=== PATIENT | male | born 1935 | race Caucasian/White ===

== ENCOUNTER 2017-11-23 08:29 | Inpatient (IN) | payer MEDICARE, BC ==
--- NOTE | 2017-11-16 08:52 | HP ---
DATE OF ADMISSION/SURGERY: 11/23/17 DATE OF OFFICE VISIT: 11/12/17 ATTENDING SURGEON: Sanam Hensley MD * (DICTATED BY MORELIA SNOWDEN) PROCEDURE: Left total knee arthroplasty. CHIEF COMPLAINT: Left knee pain. HISTORY OF PRESENT ILLNESS: Mr. Plasencia is an 82-year-old gentleman with complaints of left knee pain secondary to end-stage osteoarthritis. He's failed conservative management and elected to proceed with a left total knee arthroplasty which is scheduled for 11/23/[address] Hensley. PAST MEDICAL HISTORY: 1. Hypertension. 2. Atrial fibrillation. 3. High cholesterol. 4. Diabetes. 5. Benign prostatic hypertrophy. PAST SURGICAL HISTORY: 1. Bilateral knee arthroscopies. 2. Unknown prostate surgery. 3. A cyst removed from his jaw. CURRENT MEDICATIONS: 1. Coumadin 2 mg. 2. Glipizide 10 mg twice daily. 3. Metformin 500 mg twice daily. 4. Lantus. 5. Lisinopril 2.5 mg every day. 6. Atorvastatin. 7. Calcium 10 mg every day. 8. Metoprolol 50 mg daily. ALLERGIES: None. FAMILY HISTORY: Diabetes. SOCIAL HISTORY: An 82-year-old gentleman who lives with his . He does not smoke or use drugs. He uses alcohol rarely. REVIEW OF SYSTEMS: A complete 14-point review of systems was reviewed. The patient is positive for diabetes and some occasional dizziness. He denies a history of DVT, PE, hepatitis C, HIV or anesthesia problems. PHYSICAL EXAMINATION GENERAL: He is well developed, well nourished, in no acute distress. VITAL SIGNS: Patient stands 6 feet tall, weighs 240 pounds. His blood pressure was 110/60, heart rate was 80. HEENT: Normocephalic, atraumatic. NECK: Supple with no palpable lymph nodes. PULMONARY: Lungs are clear to auscultation bilaterally. CARDIO: Regular rate and rhythm. Strong S1 and S2. ABDOMEN: Soft, nontender, and nondistended. NEUROLOGIC: He is alert and oriented x3. Cranial nerves II through XII are intact. MUSCULOSKELETAL: Left lower extremity - skin is intact. There are no open wounds or abrasions. He has some tenderness over the medial and lateral joint line. 10- 120 degrees of flexion with patellofemoral crepitus. No varus or valgus instability. 2+ dorsalis pedis pulses. His lower extremity muscular group strengths are intact at 5/5. He has intact sensation. ASSESSMENT AND PLAN: Mr. Monzon is an 82-year-old gentleman with complaints of left knee pain secondary to end-stage osteoarthritis. He has failed conservative management and elected to proceed with a left total knee arthroplasty which is scheduled for 11/23/[address] Hensley discussed the risks and benefits of the surgery at today's visit, and all of his questions were answered. He was instructed to stop his Coumadin one week prior to the surgery. He will follow up with Dr. Hensley two weeks after the surgery. MORELIA SNOWDEN [id number]/CPS #: [id number] MTDD
[~2017-11-23 08:29] MED LIST: Acetaminophen IV 1GM/100ML * 1,000 MG/100 ML VIAL IVPB ONE; Buffered Lidocaine 0.9% SYRIN* 5 ML/SYR SYRINGE INTRADERM ONE; Dexamethasone IV* 4 MG/ML 1 ML (4 MG) IV SLOW PU ONE; Famotidine IV* 10 MG/ML 2 ML (20 mg) IV ONE; Gabapentin CAP(*) 300 MG PO ONE
[2017-11-23] MEDS ORDERED: Buffered Lidocaine 0.9% SYRIN* 5 ML/SYR SYRINGE ONE (08:37)
[2017-11-23] MEDS ORDERED: Dexamethasone IV* 4 MG/ML 1 ML (4 MG) ONE (08:37)
[2017-11-23] MEDS ORDERED: Famotidine IV* 10 MG/ML 2 ML (20 mg) ONE (08:37)
[2017-11-23] MEDS ORDERED: Gabapentin CAP(*) 300 MG ONE (08:37)
[2017-11-23] MEDS ORDERED: ceFAZolin 1 GM in Dextrose (*) 2 GM/100 ML BAG IVPB ONE (08:38)
[2017-11-23] MEDS ORDERED: Acetaminophen IV 1GM/100ML * 100 ML ONE (08:43)
[2017-11-23] MEDS ORDERED: fentaNYL* 50 MCG/ML 2 ML VIAL (100 MCG VIAL) ONE (09:30)
[2017-11-23] MEDS ORDERED: KETAMINE HCL* 50 MG/ML 10 ML VIAL ONE (09:31)
[2017-11-23] MEDS ORDERED: Bupivacaine 0.5% SDV PF* 10-30ML VIAL ONE ×2 (09:31→12:17)
[2017-11-23] MEDS ORDERED: Midazolam* 1 MG/ML 10 ML VIAL (10 MG) ONE (09:31)
[2017-11-23] MEDS ORDERED: Propofol* 10 MG/ML 20 ML BTL IV PUSH ONE (09:31)
[2017-11-23] MEDS ORDERED: Ketorolac INJ* 30 MG/ML 1 ML VIAL ONE (09:31)
[2017-11-23] MEDS ORDERED: Ondansetron INJ* 2 MG/ML VIAL ONE (09:31)
--- OUTSIDE RECORDS SUMMARY | 2017-11-23 09:31 | XMS REPORT ---
:1935 External Reference #:[id number] [facility] [employer] Address [address] [address] Phone [phone] Care Team Providers Name Role Phone Tanvi Latham MD Primary Care Physician Unavailable Payers Type Date Identification Numbers Payment Provider Subscriber Medicare Primary Effective: Policy Number: Medicare Michele Monzon 2000 [id number] PayID: [id number] [address] [place] [address] Medigap Part B Policy Number: [id number] BS Facets Michele Monzon PayID: [id number] [address] [address] [place] [address] Medigap Part B Effective: 1998 Policy Number: BS Of [facility] Michele Monzon [id number] Expires: 2017 Group Number: [id number] [address] [address] Group Name: [id number] [place] [id number] PayID: [id number] Problems Date Description Provider Status Onset: 10/15/2017 Localized, primary osteoarthritis Sanam Hensley M.D. Active Family History Date Family Member(s) Problem(s) Comments General Diabetes : (age 76 Father due to CAD Years) : (age 94 Mother due to Vascular Years) Disease Onset: (10/26/2017) Siblings 6 Siblings 6 1 dec - brain tumor : (age 76 First Brother due to Brain Years) Tumor Social History Type Date Description Comments Marital Status Lives With Spouse Occupation Retired ETOH Use Occasionally consumes beer Smoking Patient is a former smoker Recreational Drug Use Denies Drug Use Smoking Patient is a former smoker quit 1957 Presently, pt chews Daily Caffeine Consumes on average 1 cup of regular coffee per day Exercise Type/Frequency Does not exercise Allergies, Adverse Reactions, Alerts Date Description Reaction Status Severity Comments 12/09/2005 NKDA active Medications Medication Date Status Form Strength Qnty SIG Indications Ordering Provider Metformin HCL Active Tablets 1000mg take one Cuate Santiago tablet by keven Velez M.DConor twice a day Coumadin Active Tablets 2mg 100tab as Cuate Martinez (managed M.D. by Dr. Latham) Glipizide Active Tablets 10mg bid Cuate Martinez M.D. Lantus Active 20 units Unknown 000 SQ bid Lisinopril Active Tablets 2.5mg 1 by mouth Unknown 000 every day Atorvastatin Active Tablets 10mg 1 by mouth Unknown Calcium 000 every day Metoprolol Active Tablets 50mg 1 by mouth Unknown Succinate ER 000 ER 24HR every day Atenolol Hx Tablets 25mg 30tabs 1 PO qd Cuate Martinez, M.DConor 018 Metformin Hx Tablets 500mg 60tabs 1 PO bid Cuate Martinez, M.DConor 018 Lipitor Hx Tablets 10mg 30tabs 1 PO qd Cuate Martinez, BrandonDConor 018 Vital Signs Date Vital Result Comment 10/26/2017 Height 71 inches 5'11" Weight 249.12 lb with shoes Heart Rate 80 /min BP Systolic Sitting 124 mmHg LA, l cuff BP Diastolic Sitting 66 mmHg LA, l cuff BMI (Body Mass Index) 34.7 kg/m2 Ejection Fraction 66% echo 12/16/05 10/15/2017 Height 71 inches 5'11" Weight 240.00 lb Heart Rate 80 /min BP Systolic 110 mmHg BP Diastolic 60 mmHg BMI (Body Mass Index) 33.5 kg/m2 12/09/2005 Height 71 inches 5'11" Weight 246.00 lb Heart Rate 70 /min BP Systolic Sitting 132 mmHg left arm, right arm 138/86 BP Diastolic Sitting 84 mmHg left arm, right arm 138/86 BP Systolic Standing 128 mmHg BP Diastolic Standing 80 mmHg BMI (Body Mass Index) 34.3 kg/m2 Results Description No Information Procedures Date CPT Code Description Status 10/26/2017 37499 EKG Tracing & Interpretation Completed 12/16/2005 07954 Color Doppler Completed 12/16/2005 62747 Pulse Doppler & Continuous Wave Completed 12/16/2005 84807 Echocardiogram Completed 12/15/2005 21192 Treadmill Interp/Report Only Completed 12/15/2005 69930 Stress Test Supervsn W/Out I/R Completed 12/09/2005 53421 EKG Tracing & Interpretation Completed 12/19/2002 65624 ECHO/Stress Completed 12/19/2002 71358 Treadmill Interp/Report Only Completed 12/19/2002 78486 Stress Test Supervsn W/Out I/R Completed 12/14/2002 00756 Color Doppler Completed 12/14/2002 32852 Pulse Doppler & Continuous Wave Completed 12/14/2002 08460 Echocardiogram Completed Encounters Type Date Location Provider CPT E/M Dx Office Visit 12/09/2005 10:40a [facility] Cuate Martinez, [address] 794.31 Shonda 427.31 Plan of Care Future Appointment(s):11/19/2017 1:20 pm - Cuate Martinez M.D. at [facility]11/16/2017 8:30 am - Nurse Visit cc at [facility]11/15/2017 10 :00 am - Nurse Visit cc at [facility]11/12/2017 3:45 pm - [facility] Schedule at [facility]11/18/2017 8:45 am - Cuate Martinez M.D. at [facility]11/23/2017 12:00 pm - Sanam Hensley M.D. at [facility]12/06/2017 1:00 pm - Sanam Hensley M.D. at [facility]11/12/2017 10:45 am - Sanam Hensley M.D. at [facility]10/26/2017 - Cuate Martinez M.D.M17.0 Bilateral primary osteoarthritis of kneeZ01.810 Encounter for preprocedural cardiovascular ooiyupyswmdZ54.2 Difficulty in walking, not elsewhere uyqmgdexbtU57.31 Abnormal electrocardiogram [ECG] [EKG]New Orders: EchocardiogramLexiscan Nuclear MyoviewFollow up:pt is preop for 2.13.18I10 Essential (primary) gkklsvriroddQ66.00 Pure hypercholesterolemia, wlnmcdihyepL04.0 Paroxysmal atrial fibrillationNew Orders:Holter Monitor
--- OUTSIDE RECORDS SUMMARY | 2017-11-23 09:31 | XMS REPORT ---
:1935 External Reference #:[id number] Author Organization [facility] [employer] Address [address] [address] Phone [phone] Care Team Providers Name Role Phone Tanvi Latham MD Primary Care Physician Unavailable Payers Type Date Identification Numbers Payment Provider Subscriber Medicare Primary Effective: Policy Number: Medicare Michele Monzon 2000 [id number] PayID: [id number] [address] [place] [address] Medigap Part B Policy Number: [id number] BS Facets Michele Monzon PayID: [id number] [address] [address] [place] [address] Medigap Part B Effective: 1998 Policy Number: BS Of [facility] Michele Monzon [id number] Expires: 2017 Group Number: [id number] [address] [address] Group Name: [id number] [place] [address] PayID: [id number] Problems Date Description Provider Status Onset: 10/15/2017 [...] History Type Date Description Comments Marital Status Stephani Monzon. 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 ETOH Use Occasionally consumes beer Smoking Patient [...] 1000mg take one Cuate Santiago tablet by Monica Martinez mouth M.DConor twice a day Coumadin Active Tablets [...] 10mg 30tabs 1 PO qd Cuate Martinez, Librado.DConor 018 Vital Signs Date Vital Result Comment 11/12/2017 Height 71 inches 5'11" Weight 250.00 lb Heart Rate 80 /min BP Systolic 126 mmHg BP Diastolic 64 mmHg BMI (Body Mass Index) 34.9 kg/m2 10/26/2017 Height 71 inches 5'11" Weight 249.12 [...] Procedures Date CPT Code Description Status 10/26/2017 93341 EKG Tracing & Interpretation Completed 12/16/2005 46143 Color Doppler Completed 12/16/2005 04558 Pulse Doppler & Continuous Wave Completed 12/16/2005 81291 Echocardiogram Completed 12/15/2005 75645 Treadmill Interp/Report Only Completed 12/15/2005 89885 Stress Test Supervsn W/Out I/R Completed 12/09/2005 95711 EKG Tracing & Interpretation Completed 12/19/2002 96720 ECHO/Stress Completed 12/19/2002 42023 Treadmill Interp/Report Only Completed 12/19/2002 78245 Stress Test Supervsn W/Out I/R Completed 12/14/2002 72714 Color Doppler Completed 12/14/2002 65682 Pulse Doppler & Continuous Wave Completed 12/14/2002 07370 Echocardiogram Completed Encounters Type Date Location Provider CPT E/M Dx Office Visit 10/26/2017 9:40a [facility] Cuate Martinez, [address] M17.0 Librado.Job Z01.810 R26.2 R94.31 I10 E78.00 I48.0 R53.83 I44.0 I45.0 Office Visit 10/15/2017 2:00p [facility] Sanam Hensley M.D. 99086 M25.461 C.M.AConor M25.462 M25.562 M25.561 M17.0 Office Visit 12/09/2005 10:40a [facility] Cuate Martinez, [address] 794.31 MKaia 427.31 Plan of Care Future Appointment(s):11/23/2017 11:30 am - MORELIA Garces at [facility]11/23/2017 11:30 am - Carl Sanchez PA-C at [facility]11/23/2017 11:30 am - MORELIA Arce at [facility]11/18/2017 10:30 am - Cuate Martinez M.D. at [facility]11/16/2017 8:30 am - Nurse Visit cc at [facility]11/15/2017 10 :00 am - Nurse Visit cc at [facility]11/23/2017 11:30 am - Sanam Hensley M.D. at [facility]12/06/2017 1:00 pm - Sanam Hensley M.D. at [facility]11/12/2017 - Sanam Hensley M.D.M17.0 Bilateral primary osteoarthritis of kneeFollow up:Follow up: 2 weeks after uyqrnusK42.562 Pain in left kneeM25.462 Effusion, left knee
[2017-11-23] MEDS ORDERED: ROPIVACAINE 5 MG/ML 30 ML BTL (0.5%) ONE ×2 (10:29→10:31)
[2017-11-23] MEDS ORDERED: Lidocaine 2% PF * 5 ML VIAL ONE (11:17)
[2017-11-23] MEDS ORDERED: Ondansetron INJ* 2 MG/ML VIAL IV PRN ×2 (11:40→12:12)
[2017-11-23] MEDS ORDERED: fentaNYL* 50 MCG/ML 2 ML VIAL (100 MCG VIAL) IV PRN (11:40)
[2017-11-23] MEDS ORDERED: Naloxone* 0.4 MG/ML 1 ML VIAL IV PRN (11:40)
[2017-11-23] MEDS ORDERED: DiMENhydriNATE IV* 50 MG/ML VIAL IV PUSH PRN (11:40)
[2017-11-23] MEDS ORDERED: oxyCODONE TAB* 5 MG TAB PO PRN ×2 (11:40→12:23)
[2017-11-23] MEDS ORDERED: HYDROmorphone INJ* 1 MG/ML CARPUJECT SYRINGE IV PRN (11:40)
[2017-11-23] MEDS ORDERED: diPHENhydraMINE IV* 50 MG/ML 1 ml VIAL (BENADRYL) IV PRN (12:12)
[2017-11-23] MEDS ORDERED: Ondansetron TAB* 4 MG PO PRN (12:12)
[2017-11-23] MEDS ORDERED: oxyCODONE/Acetamin 5/325 MG* TAB PO PRN (12:12)
[2017-11-23] MEDS ORDERED: Morphine INJ* 2 MG/ML 1 ML CARPUJECT IV PRN (12:12)
[2017-11-23] MEDS ORDERED: Morphine INJ* 4 MG/ML 1 ML CARPUJECT IV PRN (12:12)
[2017-11-23] MEDS ORDERED: Magnesium Hydroxide LIQ* 30 ML UDC PO PRN (12:12)
[2017-11-23] MEDS ORDERED: Cyclobenzaprine TAB* 10 MG PO PRN (12:12)
[2017-11-23] MEDS ORDERED: WARFARIN PO SCH ×2 (12:30)
--- NOTE | 2017-11-23 15:14 | RAD ---
INDICATION: Status post left knee arthroplasty COMPARISON: Preoperative radiograph October 15, 2017 TECHNIQUE: 2 view radiograph of the left knee. FINDINGS: The left knee prosthesis is anatomically aligned in the AP and lateral projections. A surgical drain is noted. IMPRESSION: Anatomic alignment of recently installed left knee prosthesis.
[2017-11-23] MEDS: Lisinopril TAB* 5 MG PO SCH (17:19)
[2017-11-23] MEDS: Atorvastatin* 10 MG TAB PO SCH (17:32)
[2017-11-23] MEDS: Metoprolol Succinate XL TAB* 50 MG PO SCH (17:32)
[2017-11-23] MEDS ORDERED: NON FORMULARY MED* (Lisinopril [Lisinopril 2.5 Mg-] 2.5 MG) PO SCH (18:00)
[2017-11-23] MEDS: oxyCODONE/Acetamin 5/325 MG* TAB PO PRN (19:43)
[2017-11-23] MEDS ORDERED: metFORMIN* 1,000 MG TAB PO SCH (21:00)
[2017-11-23] MEDS ORDERED: Insulin GLARGINE(*) 1 UNITS UNIT SUBCUT SCH (21:00)
[2017-11-23] MEDS: Docusate CAP* 100 MG PO SCH (22:23)
[2017-11-23] MEDS: glipiZIDE TAB* 5 MG PO SCH (22:23)
[2017-11-23] MEDS: Magnesium Hydroxide LIQ* 30 ML UDC PO SCH (22:23)
[2017-11-23] MEDS: Insulin GLARGINE(*) 1 UNITS UNIT SUBCUT SCH (22:26)
--- NOTE | 2017-11-23 22:42 | CONS ---
CC: Dr. Tanvi Latham; Dr. Sanam Hensley * CONSULTATION REPORT: DATE OF CONSULT: 11/23/17 PRIMARY CARE PROVIDER: Tanvi Latham MD PHYSICIAN REQUESTING CONSULTATION: Dr. Sanam Hensley. ATTENDING PHYSICIAN: Rick Spence MD (dictated by Mary Eden NP). REASON FOR CONSULTATION: Co-medical management in a patient with a history of hypertension, atrial fibrillation, hyperlipidemia and diabetes mellitus. HISTORY OF PRESENT ILLNESS: Mr. Monzon is an 82-year-old male with past medical history significant for hypertension, atrial fibrillation, hyperlipidemia, diabetes mellitus type 2, BPH, osteoarthritis, obesity and prostate cancer who presented to the hospital today for an elective left total knee arthroplasty with Dr. Hensley after failing conservative management. The patient states that leading up to his procedure today, he has been in his usual state of health. He denies any recent fever, chills, chest pain, shortness of breath, nausea, vomiting or diarrhea. The patient states post-operatively, he is doing well, but he is starting to experience some pain and is requesting pain medication. Hospitalists were asked to assist with the co-medical management of this patient during his hospitalization. PAST MEDICAL HISTORY: 1. Hypertension. 2. Hyperlipidemia. 3. Diabetes mellitus, type 2. 4. BPH. 5. Osteoarthritis. 6. Obesity. 7. Prostate cancer. PAST SURGICAL HISTORY: 1. Status post bilateral knee arthroscopies. 2. Status post TURP. 3. Status post cyst excision from jaw. 4. Status post bilateral cataract extractions. HOME MEDICATIONS: Include: 1. Warfarin 5 mg oral daily on Wednesday, Wednesday, Wednesday and Wednesday, and 7 mg oral daily on Wednesday, Wednesday and . 2. Glipizide 10 mg oral twice daily. 3. Metformin 1000 mg oral twice daily. 4. Lantus 25 units oral twice daily. 5. Lisinopril 2.5 mg oral daily. 6. Atorvastatin 10 mg oral daily. 7. Calcium 10 mg oral daily. 8. Metoprolol succinate 50 mg oral daily. 9. Tramadol 50 mg 1 to 2 tablets oral daily at bedtime as needed for pain. ALLERGIES: No known drug allergies. FAMILY HISTORY: The patient has a family history of diabetes mellitus. His father passed at age 76 with a history of coronary artery disease. The patient' s mother passed at age 94 with a history of vascular disease. He has a sibling with a history of brain tumor. SOCIAL HISTORY: The patient denies smoking tobacco or recreational drug use. He rarely drinks alcohol. He reports chewing tobacco for the last 40 years. His Stephani, will be his surrogate decision maker in the event he is unable to make decisions for himself. REVIEW OF SYSTEMS: I performed an 11-point review of systems. All the pertinent positives and negatives are mentioned in the history of present illness. Remaining review of systems are negative. PHYSICAL EXAMINATION: Vital Signs: Temperature 97.9, heart rate 81, respiratory rate 20, O2 sat 98% on room air, blood pressure 132/88. General Appearance: The patient is alert, pleasant, appears to be in no acute distress. HEENT: Normocephalic, atraumatic. Pupils are equal and reactive to light. Extraocular movements are intact. Respiratory: There is no accessory muscle use. Lungs are clear to auscultation. Cardiovascular: Regular rate and rhythm. S1 and S2 are present. There are no murmurs, rubs or gallops heard. Abdomen: Soft, large, nontender, nondistended. There are bowel sounds present x4. Extremities: There is no lower extremity edema. DP and PT pulses are 2+ and symmetric. Musculoskeletal: There is no clubbing or cyanosis noted. The patient exhibits good strength in all extremities. Neurological: The patient is alert and oriented x4. Cranial nerves II through XII are grossly intact. Psychological: The patient is calm and cooperative. Skin: There are no rashes or abnormalities seen. DIAGNOSTIC STUDIES/LABORATORY DATA: Preop labs from 11/12/17: Sodium 134, potassium 5.0, chloride 101, CO2 23, BUN 26, creatinine 1.62 and glucose 217. White blood cell count 12.3, hemoglobin 13.8, hematocrit 49 and platelet count 385. Urinalysis negative. IMPRESSION: Mr. Monzon is an 82-year-old male with past medical history significant for hypertension, atrial fibrillation, hyperlipidemia, diabetes mellitus, benign prostatic hypertrophy, obesity and osteoarthritis who presents to the hospital today for an elective left total hip arthroplasty with Dr. Hensley. Hospitalists were asked to assist with co-medical management during the patient's hospitalization. ASSESSMENT AND PLAN: 1. Osteoarthritis. Status post left total knee arthroplasty, postop day. Management will be per Orthopedic Surgery. We will trend his H and H as he will have occupational therapy and physical therapy starting in the morning. He will have urinary catheter in place until the morning. He will be placed on bowel regimen and receive pain management. 2. Hypertension. Normotensive, will be continued on his home lisinopril and metoprolol. 3. Atrial fibrillation. Heart rate is controlled at this time. The patient will be continued on metoprolol and warfarin. 4. Hyperlipidemia. The patient will be continued on his home atorvastatin. 5. Diabetes mellitus. The patient will be continued on his home Lantus, glucose checks a.c. and h.s. continue the patient's home glipizide, but we will hold his metformin. 6. Benign prostatic hypertrophy. We will monitor to ensure that the patient is urinating without difficulty post urinary catheter. 7. Obesity. The patient's BMI is approximately 33. 8. Fluids, electrolytes, and nutrition. The patient will be on a consistent carbohydrate diet. 9. Code status. Full code. 10. DVT prophylaxis. The patient will be on Lovenox bridged to warfarin. 11. Disposition. Inpatient with disposition per Orthopedic Surgery. TIME SPENT: Time for this consultation was approximately 45 minutes, greater than half of that was spent with the patient discussing medications, past medical history, and the events leading up to his arrival today and performing a physical examination. Reviewed by SY GÓMEZ 11/24/17 1644 [id number]/GBARIEL #: [id number] RANDI
[2017-11-24] MEDS: oxyCODONE/Acetamin 5/325 MG* TAB PO PRN ×5 (01:28→22:44)
[2017-11-24 04:57] LABS: Hematocrit 30 % (42-52); Hemoglobin 10.4 g/dl (14.0-18.0); Mean Platelet Volume 7 um3 (7.4-10.4); Platelet Count 301 10^3/ul (150-450)
[2017-11-24 05:01] LABS: INR 1.06 (0.77-1.02)
[2017-11-24 05:07] LABS: EGFR Non-African American 48.8 (>60)
[2017-11-24] MEDS: Insulin GLARGINE(*) 1 UNITS UNIT SUBCUT SCH ×2 (09:34→20:26)
[2017-11-24] MEDS: glipiZIDE TAB* 5 MG PO SCH ×2 (09:38→20:26)
[2017-11-24] MEDS: Docusate CAP* 100 MG PO SCH ×2 (09:38→20:26)
[2017-11-24] MEDS: Magnesium Hydroxide LIQ* 30 ML UDC PO SCH ×2 (09:39→20:25)
[2017-11-24] MEDS: oxyCODONE TAB* 5 MG TAB PO PRN (10:37)
[2017-11-24] MEDS ORDERED: Dextrose 50% Syringe 50 ML* 25 GM/50 ML SYRINGE IV PUSH PRN (10:50)
--- NOTE | 2017-11-24 11:45 | PN ---
Progress Note - Progress Note Date of Service: 11/24/17 SOAP: Subjective: []Patient seen OOB in chair POD 1 sp left total knee replacement. Knee pain is well controlled. Denies left leg numbness or tingling. Denies CP, SOB, nausea or dizziness. Objective: [] Vital Signs Temp 97.5 F 11/24/17 07:41 Pulse 70 11/24/17 07:41 Resp 16 11/24/17 10:37 BP 125/72 11/24/17 07:41 Pulse Ox 99 11/24/17 07:41 Intake & Output 11/23/17 11/24/17 11/24/17 18:59 06:59 18:59 Intake Total 2300 1726 325 Output Total 200 1200 250 Balance 2100 526 75 Weight 242 lb Intake: IV Fluids 2300 966 LR 2200 966 NS 100ML, Cefazolin 2G 100 Oral 760 325 Output: Urine 250 250 Bacon 200 950 Laboratory Last Values Hgb 10.4 g/dl (14.0-18.0) L 11/24/17 04:21 Hct 30 % (42-52) L 11/24/17 04:21 Plt Count 301 10^3/ul (150-450) 11/24/17 04:21 MPV 7 um3 (7.4-10.4) L 11/24/17 04:21 INR (Anticoag Therapy) 1.06 (0.77-1.02) H 11/24/17 04:21 Sodium 133 mmol/L (133-145) 11/24/17 04:21 Potassium 4.7 mmol/L (3.5-5.0) 11/24/17 04:21 Chloride 102 mmol/L (101-111) 11/24/17 04:21 Carbon Dioxide 26 mmol/L (22-32) 11/24/17 04:21 Anion Gap 5 mmol/L (2-11) 11/24/17 04:21 BUN 24 mg/dL (6-24) 11/24/17 04:21 Creatinine 1.40 mg/dL (0.67-1.17) H 11/24/17 04:21 Est GFR ( Amer) 62.7 (>60) 11/24/17 04:21 Est GFR (Non-Af Amer) 48.8 (>60) 11/24/17 04:21 BUN/Creatinine Ratio 17.1 (8-20) 11/24/17 04:21 Glucose 191 mg/dL (70-100) H 11/24/17 04:21 POC Glucose (mg/dL) 135 mg/dL (70-100) H 11/23/17 13:51 Calcium 8.6 mg/dL (8.6-10.3) 11/24/17 04:21 General: Well appearing, NAD. Sitting up in chair comfortably. LLE: Drain pulled this morning by Dr Hensley without complication. Dressing CDI. DF/PF intact. DP 2+. BL LE: Calves supple and nontender without erythema, edema or palpable cords. Assessment: []POD 1 sp left total knee replacement 11/23 Dr Hensley Plan: []WBAT PT/OT Lovenox, coumadin 8 mg today
[2017-11-24] MEDS: Insulin LISPRO* 1 UNITS UNIT SUBCUT SCH ×3 (12:28→20:26)
[2017-11-24] MEDS: Enoxaparin(*) 30 MG/0.3 ML SYR SUBCUT SCH (12:29)
--- NOTE | 2017-11-24 16:56 | OP ---
DATE OF OPERATION: 11/23/17 - ROOM #339 DATE OF : 39 ATTENDING SURGEON: Sanam Hensley MD SHINGLE WEAVER: MORELIA Bailey. Mr. Sanchez did help throughout the procedure with preparation of the leg, wound retraction, manipulation of the knee, and wound closure. ANESTHESIOLOGIST: Dr. Wills. ANESTHESIA: Spinal. PRE-OP DIAGNOSIS: Severe end-stage degenerative osteoarthritis of the left knee joint. POST-OP DIAGNOSIS: Severe end-stage degenerative osteoarthritis of the left knee joint. OPERATIVE PROCEDURE: Left total knee arthroplasty. TOURNIQUET TIME: 48 minutes. COMPLICATIONS: None. SPECIMEN: Bone and cartilage from the left knee joint sent to Pathology. ESTIMATED BLOOD LOSS: 300 cc. HARDWARE USED: Cemented [employer] total knee arthroplasty hardware. Two packages of Simplex bone cement were used. For the femur, a size 7 left posterior stabilized Legion femoral component. For the tibia, a size 7 left Qi II tibial base plate. For the insert, a 13-mm posterior stabilized articular insert, size 7/8. For the patella, a 35-mm 3-peg all poly patella. BRIEF HISTORY/INDICATION: Mr. Monzon is an 82-year-old gentleman with years of increasingly severe left knee pain. He failed conservative treatment with antiinflammatories, pain medication, intraarticular injection, and physical therapy. His radiograph showed [id number] arthritis. Due to continued pain and decreased quality of life, he elected to under-go a left total knee arthroplasty. Informed consent was obtained from the patient. He understood the risks of surgery included but were not limited to bleeding, infection, damage to nearby structures, continued pain, need for further surgery, intraoperative fracture, nerve palsy, hardware failure or loosening, knee stiffness, loss of motion, stroke, heart attack, blood clot, and . He wished to proceed. INTRAOPERATIVE FINDINGS: Intraoperatively, the patient was noted to have a flexion contracture of 20 degrees to begin the case. He was brought out into full extension by the end. He had 12 degrees varus deformity as well. Intraoperatively, he had tricompartmental full-thickness loss of cartilage. DESCRIPTION OF PROCEDURE: Mr. Monzon was identified in the preanesthesia unit. His left lower extremity was marked as the correct operative site. Informed consent was signed and placed in the chart. The patient was taken to the operating room and placed under spinal anesthesia. A Bacon catheter was placed. Tourniquet was placed on the left thigh. Left lower extremity was prepped and draped in the usual sterile fashion. Preop time-out was made to correctly identify the patient, side, and site. Appropriate perioperative antibiotics were given within 1 hour of incision. Tourniquet was inflated and total tourniquet time for this procedure was 48 minutes. A midline incision was made using a 10-blade. This was carried down sharply to the extensor mechanism. A new 10-blade was used to make a standard medial parapatellar arthrotomy. The patella was subluxed laterally. Electrocautery was used to elevate the soft tissue off the superomedial tibia to the mid sagittal plane. Medial tibial osteophytes were carefully removed with a rongeur. The knee was flexed up. The anterior horn of the lateral meniscus and ACL were sharply released. A drill was used to enter the distal femur. Intramedullary, distal femoral cutting guide was pinned on the distal femur. Oscillating saw was used to make the distal femoral cut and 2 additional millimeters were chosen because of the severe flexion contracture. Next, the external rotation guide was pinned on the distal femur and the distal femur was sized to a size 7. Size 7 multi-cutting jig was pinned on the distal femur. Oscillating saw was used to make the appropriate 4 chamfer cuts. The PCL was completely released. The tibia was subluxed anteriorly. Extramedullary tibial cutting guide was pinned on the proximal tibia. Oscillating saw was used to make the proximal tibial cut perpendicular to the mechanical axis of the tibia. The bone was carefully removed. The knee was brought out into full extension. Spacer block had excellent fit. There was good medial and lateral ligamentous balancing. Flexion and extension gaps were well balanced. The knee was flexed up. Lamina director outpatient services was placed both medially and laterally. Any remaining meniscus was removed using electrocautery. Curved osteotome was used to remove any posterior osteophytes. Tibial tray and drop carmen were placed to once again confirm satisfactory tibial cut. This was confirmed. A size 7 left femoral trial was impacted on to the distal femur and had good fit. The box for the posterior stabilized implant was prepared using a reamer and box cut osteotome. Size 7 tibial tray trial with an 11-mm insert trial was placed and the knee was taken through range of motion. The knee had full extension to 130 degrees of flexion with good patellofemoral tracking. Patella was everted. 9-mm of patellar bone and cartilage was carefully removed using an oscillating saw. Patella was sized to a size 35. The 3-peg holes were drilled through the size 35 guide. 35 trial patella was placed and the knee was taken through range of motion. There was satisfactory patellofemoral tracking. All trials were carefully removed. The tibia was subluxed anteriorly and sized to a size 7. Proximal tibia was prepared using a size 7 keel punch. All bony cut surfaces were copiously irrigated with sterile saline and dried. The final implants were cemented into place starting with the tibia, followed by the femur and last the patella. A 13-mm insert trial was placed while the knee was brought out into full extension. Tourniquet was turned down at 48 minutes. Electrocautery was used to obtain meticulous hemostasis. The knee was copiously irrigated with sterile saline. Once the cement had fully cured, the insert trial was removed. Any excess cement was removed from around the capsule and implant. Final insert chosen was a 13-mm posterior stabilized articular insert. This was locked into position on the tibial tray without difficulty. Stability of the insert was checked and rechecked and noted to be stable. The knee was once again copiously irrigated with sterile saline. The extensor mechanism was closed over a medium Hemovac drain using interrupted #1 Vicryls. The rest of the incision was closed in layered fashion using 0 and 2-0 Vicryls. Skin was closed using running 3-0 nylon suture. Sterile Xeroform, 4x4s, and Webril were used to cover the incision. Gregory wrap and cold pack were placed over this. The patient's anesthesia was reversed without difficulty. He was taken to the PACU in stable condition. Intended weightbearing will be weightbearing as tolerated. Intended DVT prophylaxis will be Coumadin with a Lovenox bridge. [id number]/[facility] #: [id number] RANDI
[2017-11-24] MEDS ORDERED: Warfarin TAB(*) 5 MG PO SCH (17:00)
[2017-11-24] MEDS: Atorvastatin* 10 MG TAB PO SCH (17:41)
[2017-11-24] MEDS: Lisinopril TAB* 5 MG PO SCH (17:41)
[2017-11-24] MEDS: Metoprolol Succinate XL TAB* 50 MG PO SCH (17:41)
[2017-11-25] MEDS: oxyCODONE/Acetamin 5/325 MG* TAB PO PRN ×3 (03:26→16:05)
[2017-11-25 05:34] LABS: Hematocrit 28 % (42-52); Hemoglobin 9.6 g/dl (14.0-18.0); Mean Platelet Volume 7 um3 (7.4-10.4); Platelet Count 283 10^3/ul (150-450)
[2017-11-25 05:37] LABS: INR 1.18 (0.77-1.02)
[2017-11-25] MEDS: Magnesium Hydroxide LIQ* 30 ML UDC PO SCH (08:06)
[2017-11-25] MEDS: Docusate CAP* 100 MG PO SCH (08:06)
[2017-11-25] MEDS: Insulin LISPRO* 1 UNITS UNIT SUBCUT SCH ×3 (08:20→16:50)
[2017-11-25] MEDS: Insulin GLARGINE(*) 1 UNITS UNIT SUBCUT SCH (08:21)
[2017-11-25] MEDS: glipiZIDE TAB* 5 MG PO SCH (08:24)
[2017-11-25] MEDS: Enoxaparin(*) 30 MG/0.3 ML SYR SUBCUT SCH (12:03)
[2017-11-25] MEDS: oxyCODONE TAB* 5 MG TAB PO PRN (12:03)
--- NOTE | 2017-11-25 13:01 | PN ---
Progress Note - Progress Note Date of Service: 11/25/17 SOAP: Subjective: []Patient seen at bedside. He feels well with tolerable LLE pain. No CP, SOB, nausea, dizziness or leg numbness. Objective: []General: Well appearing, NAD. Laying comfortably in bed LLE: Dressing changed this morning by Dr Hensley without complication. Dressing CDI. DF/PF intact. DP 2+. Sensation intact distally. BL LE: Calves supple and nontender without erythema, edema or palpable cords. Vital Signs Temp 98.9 F 11/25/17 11:20 Pulse 80 11/25/17 11:20 Resp 18 11/25/17 12:03 BP 116/49 11/25/17 11:20 Pulse Ox 97 11/25/17 11:20 Intake & Output 11/24/17 11/25/17 11/25/17 18:59 06:59 18:59 Intake Total 2142 240 240 Output Total 375 75 Balance 1767 165 240 Intake: IV Fluids 987 LR 987 Oral 1155 240 240 Output: Urine 375 75 Other: Estimated Void Medium Large Date of Last Bowel 11/25/17 Movement # Bowel Movements 1 Estimated Stool Amount Large Small # Voids 1 Laboratory Last Values Hgb 9.6 g/dl (14.0-18.0) L 11/25/17 04:42 Hct 28 % (42-52) L 11/25/17 04:42 Plt Count 283 10^3/ul (150-450) 11/25/17 04:42 MPV 7 um3 (7.4-10.4) L 11/25/17 04:42 INR (Anticoag Therapy) 1.18 (0.77-1.02) H 11/25/17 04:42 Sodium 133 mmol/L (133-145) 11/24/17 04:21 Potassium 4.7 mmol/L (3.5-5.0) 11/24/17 04:21 Chloride 102 mmol/L (101-111) 11/24/17 04:21 Carbon Dioxide 26 mmol/L (22-32) 11/24/17 04:21 Anion Gap 5 mmol/L (2-11) 11/24/17 04:21 BUN 24 mg/dL (6-24) 11/24/17 04:21 Creatinine 1.40 mg/dL (0.67-1.17) H 11/24/17 04:21 Est GFR ( Amer) 62.7 (>60) 11/24/17 04:21 Est GFR (Non-Af Amer) 48.8 (>60) 11/24/17 04:21 BUN/Creatinine Ratio 17.1 (8-20) 11/24/17 04:21 Glucose 191 mg/dL (70-100) H 11/24/17 04:21 POC Glucose (mg/dL) 195 mg/dL (70-100) H 11/25/17 12:06 Hemoglobin A1c 9.1 % (4.0-5.6) H 11/25/17 04:42 Calcium 8.6 mg/dL (8.6-10.3) 11/24/17 04:21 Assessment: []POD 2 s/p left total knee replacement 11/23 Dr Hensley Plan: []WBAT PT/OT Lovenox, coumadin 8 mg today. Will resume home coumadin dosing tomorrow, with INR's followed for adjustments needed to reach therapeutic range DC today
[2017-11-25 16:01] VITALS: BP 144/59
[2017-11-25] MEDS ORDERED: Warfarin TAB(*) 4 MG PO SCH (17:00)
[2017-11-25] MEDS ORDERED: Warfarin TAB(*) 3 MG PO SCH (17:00)
--- NOTE | 2017-11-26 09:39 | DS ---
DISCHARGE SUMMARY: DATE OF ADMISSION: 11/23/17 DATE OF DISCHARGE: 11/25/17 PROVIDER: Sanam Hensley MD * (dictated by MORELIA Garces) SPORTS REPORTER: MORELIA Bailey PRE-OP DIAGNOSIS: Severe end-stage degenerative osteoarthritis of the left knee joint. OPERATIVE PROCEDURE: Left total knee arthroplasty. HISTORY: Mr. Monzon is an 82-year-old gentleman with years of increasingly severe left knee pain. He failed conservative treatment with antiinflammatories , pain medication, intraarticular injection, and physical therapy. His radiographs show [id number] arthritis. Due to continued pain and decreased quality of life, he elected to undergo a left total knee arthroplasty. HOSPITAL COURSE: On 11/23/17 Mr. Monzon was admitted to [facility]. He underwent a left total knee arthroplasty without complication. He recovered briefly in the PACU, and then was transferred to the short stay surgical unit in stable condition. During his stay, he was consulted by occupational therapy, physical therapy, and the hospitalist service to manage his medical comorbidities. Postop day #1, the patient was seen out of bed in chair. He was well appearing, in no acute distress. His drain was pulled this morning by Dr. Hensley without complication. Dressing clean, dry, and intact. Dorsiflexion, plantar flexion intact, 2+ dorsalis pedis pulse. November 25, the patient was again seen at bedside. He was well appearing, no acute distress. Dressing was changed this morning by Dr. Hensley without complication. Dressing clean, dry, intact. Dorsiflexion, plantar flexion intact, 2+ dorsalis pedis pulse. Sensation intact distally. Calves supple and nontender without erythema, edema, or palpable cords. Vital signs: 98.9, pulse 80, respiratory rate 18, blood pressure 116/49, and pulse ox was 97. LAB STUDIES: 11/24/17 - hemoglobin 10.4, hematocrit 30, INR 1.06. 11/25/17 - hemoglobin 9.6, hematocrit 28, INR 1.18. Of note, the patient's hemoglobin A1c is 9.1. The patient was deemed to be medically and orthopedically stable for discharge home. MEDICATIONS AT DISCHARGE: 1. The patient will take 8 mg warfarin tonight. He will then resume his daily dosing of warfarin that he took prior to entering the hospital, which is an alternation between 5 and 7.5 mg as instructed for the patient. 2. Atorvastatin 10 mg. 3. Metformin 1000 mg p.o. b.i.d. 4. Insulin glargine aka Lantus 20 units subcu b.i.d. 5. Glipizide 10 mg p.o. b.i.d. 6. Metoprolol succinate 50 mg p.o. q.p.m. 7. Lisinopril 2.5 mg p.o. q.p.m. 8. Docusate 100 mg p.o. b.i.d. 9. Percocet 5/325 one to two tabs p.o. q.4 to 6 hours p.r.n., max daily dose of 10. DISCHARGE INSTRUCTIONS: The patient is to be weightbearing as tolerated. He can shower after the 26 of November. No bathing, swimming, or submerging the wound; cover with gauze and tape and Gregory wrap. Call orthopedic office for increased drainage, redness, increased pain or fever. Go to the emergency room with shortness of breath or chest pain. Continue with physical therapy and occupational therapy. Exercise as shown. Visiting home nurse should do wound checks and check INR on Wednesday and . Coumadin dosing take 8 mg today ; thereafter, he will resume normal Coumadin dosing at home which historically has been 5 mg on Wednesday, Wednesday, Wednesday, and Wednesday, and 7.5 mg on Wednesday, Wednesday and . We will be checking his INRs and adjusting as necessary during this postoperative period. Pain control with Percocet 5/ 325 one to two tabs by mouth every 4 to 6 hours as needed for pain, maximum of 10 caps per day. Please note that Percocet contains Tylenol; maximum daily dose of Tylenol is 4000 mg by mouth. Follow up with Dr. Hensley in 10 to 14 days; call for an appointment. MORELIA MOSES [id number]/[facility] [place] #: [id number] [facility]
== END 2017-11-25 16:50 | disposition home health service (06) | DRG 470 ==
LOC: AA 08:29 → SSU 16:17
PROVIDERS: ADMIT Orthopaedic Surgery Adult Reconstructive Orthopaedic Surgery; ATTEND Orthopaedic Surgery Adult Reconstructive Orthopaedic Surgery
PROC: 0SRD0J9 Replacement of Left Knee Joint with Synthetic Substitute, Cemented, Open Approach (ICD-10-PCS; principal; 2017-11-23 11:00)
DX: M17.12 Unilateral primary osteoarthritis, left knee (principal); I48.91 Unspecified atrial fibrillation; E78.00 Pure hypercholesterolemia, unspecified; N40.0 Benign prostatic hyperplasia without lower urinary tract symptoms; E66.9 Obesity, unspecified; F17.220 Nicotine dependence, chewing tobacco, uncomplicated; M21.162 Varus deformity, not elsewhere classified, left knee; M25.762 Osteophyte, left knee; E11.9 Type 2 diabetes mellitus without complications; I10 Essential (primary) hypertension; Z79.01 Long term (current) use of anticoagulants; Z79.4 Long term (current) use of insulin; Z83.3 Family history of diabetes mellitus; Z68.33 Body mass index [BMI] 33.0-33.9, adult; Z85.46 Personal history of malignant neoplasm of prostate; Z98.42 Cataract extraction status, left eye; Z98.41 Cataract extraction status, right eye; Z82.49 Family history of ischemic heart disease and other diseases of the circulatory system; Z80.8 Family history of malignant neoplasm of other organs or systems
CPT/HCPCS: 36415; 80048; 83036; 85014; 85018; 85049; 85610; A9270-GY; J0690; J1100; J1650; J1885; J2250; J2405; J2704; J2795; J3010

== ENCOUNTER 2018-07-26 07:36 | Inpatient (IN) | payer MEDICARE, BC ==
--- NOTE | 2018-07-13 18:05 | HP ---
HISTORY AND PHYSICAL: DATE OF ADMISSION/SURGERY: 07/26/18 DATE OF OFFICE VISIT: 07/13/18 SURGEON: Sanam Hensley MD * (DICTATED BY MORELIA SNOWDEN) PROCEDURE: Right total knee arthroplasty. CHIEF COMPLAINT: Right knee pain. HISTORY OF PRESENT ILLNESS: Mr. Monzon is an 82-year-old gentleman with complaints of right knee pain. He has failed conservative treatment and elected to proceed with a right total knee arthroplasty. PAST MEDICAL HISTORY: Diabetes, hypertension, AFib, high cholesterol, and BPH. PAST SURGICAL HISTORY: Bilateral knee arthroscopies, left total knee arthroplasty, cyst removal from his jaw, and prostate surgery, unknown. CURRENT MEDICATIONS: 1. Coumadin. 2. Glipizide 10 mg b.i.d. 3. Metformin 1000 mg b.i.d. 4. Basaglar KwikPen. 5. Lisinopril 2.5 mg daily. 6. Atorvastatin calcium 10 mg daily. 7. Atenolol 25 mg daily. ALLERGIES: No known drug allergies. FAMILY HISTORY: Diabetes. SOCIAL HISTORY: He is an 82-year-old gentleman, lives with his . He does not smoke. He chews tobacco. Denies use of illicit drugs or alcohol. REVIEW OF SYSTEMS: A complete 14-point review of systems was reviewed with the patient. It was positive for diabetes. He denies history of DVT, PE, hepatitis , HIV, or anesthesia problems. PHYSICAL EXAMINATION GENERAL: He is well developed, well nourished, in no acute distress. VITAL SIGNS: He stands 5 feet 11 inches tall, weighs 242 pounds. His blood pressure 118/58, his heart rate is 72. HEENT: Normocephalic, atraumatic. NECK: Supple. No palpable lymph nodes. PULMONARY: Lungs are clear to auscultation bilaterally. CARDIO: Regular rate and rhythm. Strong S1, S2. ABDOMEN: Soft, nontender, nondistended. NEUROLOGICAL: He is alert and oriented x3. MUSCULOSKELETAL: Right lower extremity, the skin is intact. There are no open wounds or abrasions. There is a moderate joint effusion and some tenderness over the medial and lateral joint line. Range of motion is 10 to 120 degrees of flexion with patellofemoral crepitus, 5/5 lower extremity strength, 2+ dorsalis pedis pulses, and intact sensation. ASSESSMENT AND PLAN: Mr. Monzon is an 82-year-old gentleman with end-stage osteoarthritis of the right knee. He has failed conservative treatment and elected to proceed with a right total knee arthroplasty, which is scheduled for 07/26/[address] Hensley discussed the risks and the benefits of the surgery at today's visit and all of his questions were answered. He will follow up with Dr. Hensley 2 weeks after the surgery. MORELIA SNOWDEN [id number]/[facility] #: [id number] RANDI
[~2018-07-26 07:36] MED LIST changes: -Acetaminophen IV 1GM/100ML * 1,000 MG/100 ML VIAL IVPB ONE; -Dexamethasone IV* 4 MG/ML 1 ML (4 MG) IV SLOW PU ONE; +Tranexamic Acid 1,000 MG in NS 0.9% 50 ML* (outpatient use) IV SCH
[2018-07-26] MEDS ORDERED: Gabapentin CAP(*) 300 MG ONE (08:41)
[2018-07-26] MEDS ORDERED: Famotidine IV* 10 MG/ML 2 ML (20 mg) ONE (08:41)
[2018-07-26] MEDS ORDERED: ceFAZolin 2 GM PREMIX in ORs 2 GM/50 ML BAG IVPB ONE (08:41)
--- OUTSIDE RECORDS SUMMARY | 2018-07-26 08:46 | XMS REPORT ---
:1935 External Reference #:[id number] Author Organization [employer] Address [address] [place] [address] [place] [address] Phone [phone] Care Team Providers Name Role Phone Tanvi Latham MD Primary Care Physician Unavailable Payers Type Date Identification Numbers Payment Provider Subscriber Medicare Primary Effective: Policy Number: Medicare Arnulfo Monzon 2002 [id number] PayID: [id number] [address] [place] [address] Medigap Part B Policy Number: [id number] BS [employer]ets Arnulfo Monzon PayID: [id number] [address] [address] DIV[place] Rose [id number] Medigap Part B Effective: 1998 Policy Number: BS [facility] Arnulfo Monzon [id number] Expires: 2017 Group Number: [id number] [address] [address] Group Name: [id number] DIVINA Rose [id number] PayID: [id number] Problems Date Description Provider Status Onset: 10/15/2017 Localized, primary osteoarthritis Sanam Hensley M.D. Active Onset: 05/23/2018 Arthroplasty of knee Sanam Hensley M.D. Active Family History Date [...] Monzon. 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 ETOH Use Occasionally consumes beer Smoking Patient [...] Form Strength Qnty SIG Indications Ordering Provider Aspir-Low 11/22/ Active Tablets DR 81mg 90tab 1 by Cuate 2017 s mouth F. every day Michelle, (while M.D. holding coumadin) Metformin HCL 10/26/ Active Tablets 1000mg take one Cuate 2017 tablet by F. mouth Michelle, twice a M.D. day Coumadin 12/09/ Active Tablets 2mg 100ta as Cuate 2005 bs directed F. (managed Mauser, by Dr. Shonda Latham) Glipizide 12/09/ Active Tablets 10mg bid Cuate 2005 Monica Martinez M.D. Lisinopril / Active Tablets 2.5mg 1 by Unknown 0000 mouth every day Atorvastatin / Active Tablets 10mg 1 by Unknown Calcium 0000 mouth every day Metoprolol / Active Tablets ER 50mg 1 by Unknown Succinate ER 0000 24HR mouth every day Basaglar Kwikpen / Active Solution 100Unit/ML 20 uints Yeison, 0000 Pen-Inject bid Tanvi Nam MD Oxycodone-Acetami 02/07/ Hx Tablets 5-325mg 90tab 1-2 tabs Z47.1 Sanam nophen 2017 - s by mouth Ayden, 05/22/ every 12 M.D. 2018 hours as needed for pain Cyclobenzaprine 12/08/ Hx Tablets 10mg 30tab take 1 M17.12 Sanam HCL 2017 - s tab by Ayden 05/22/ mouth at M.D. 2018 bedtime as needed Keflex 12/02/ Hx Capsules 500mg 28cap Take one Sanam 2018 - s tablet by Ayden, 12/02/ mouth M.D. 2018 every 6 hours. Take with food. Keflex 12/02/ Hx Capsules 500mg 28cap take 1 Zaneb 2017 - s pill 4 Yaseen, 12/26/ times a MD 2017 day for 7 days Oxycodone-Acetami 11/19/ Hx Tablets 5-325mg 90tab 1-2 tabs Sanam daryn 2017 - s by mouth Ayden, 02/06/ every 4-6 M.D. 2018 hours as needed for post-op pain Colace 11/19/ Hx Capsules 100mg 90cap 1 tab by Sanam 2017 - s mouth 2-3 Ayden, 05/22/ times a M.D. 2017 day as needed Atenolol 12/09/ Hx Tablets 25mg 30tab 1 PO qd Cuate 2005 F. 10/14/ Mauser, 2017 M.D. Metformin 12/09/ Hx Tablets 500mg 60tab 1 PO bid Cuate 2005. 10/26/ Mauser, 2017 M.D. Lipitor 12/09/ Hx Tablets 10mg 30tab 1 PO qd Cuate 2005. 10/14/ Mauser, 2017 M.D. Lantus / Hx 20 units Unknown 0000 - SQ bid 2017 Vital Signs Date Vital Result Comment 07/06/2018 Height 71 inches 5'11" Weight 240.75 lb w/ shoes Heart Rate 78 /min BP Systolic Sitting 118 mmHg Lue Reg Cuff BP Diastolic Sitting 70 mmHg Lue Reg Cuff BMI (Body Mass Index) 33.6 kg/m2 Ejection Fraction 60-65% Echo 11/12/17 05/23/2018 Height 71 inches 5'11" Weight 230.00 lb Heart Rate 71 /min BP Systolic 124 mmHg BP Diastolic 62 mmHg Respiratory Rate 16 /min Pain Level 8 BMI (Body Mass Index) 32.1 kg/m2 02/07/2018 Height 71 inches 5'11" Weight 230.00 lb BP Systolic 122 mmHg BP Diastolic 78 mmHg Body Temperature 97.6 F Pain Level 1 BMI (Body Mass Index) 32.1 kg/m2 12/27/2017 Height 71 inches 5'11" Weight 230.00 lb BP Systolic 110 mmHg BP Diastolic 64 mmHg Body Temperature 98.4 F Pain Level 3 BMI (Body Mass Index) 32.1 kg/m2 12/08/2017 Height 71 inches 5'11" Weight 230.00 lb BP Systolic 124 mmHg BP Diastolic 64 mmHg Body Temperature 98.9 F BMI (Body Mass Index) 32.1 kg/m2 12/03/2017 Height 71 inches 5'11" Weight 230.00 lb BP Systolic 117 mmHg BP Diastolic 58 mmHg Body Temperature 97.9 F BMI (Body Mass Index) 32.1 kg/m2 11/12/2017 Height 71 inches 5'11" Weight 250.00 [...] BMI (Body Mass Index) 34.3 kg/m2 Results Test Date Test Result H/L Range Note CBC Auto Diff 07/05/2018 White Blood Count 9.7 10^3/uL 3.5-10.8 Red Blood Count 4.28 10^6/uL 4.00-5.40 Hemoglobin 12.4 g/dL Low 14.0-18.0 Hematocrit 38 % Low 42-52 Mean Corpuscular Volume 89 fL 80-94 Mean Corpuscular Hemoglobin 29 pg 27-31 Mean Corpuscular HGB Conc 33 g/dL 31-36 Red Cell Distribution Width 16 % High 10.5-15 Platelet Count 392 10^3/uL 150-450 Mean Platelet Volume 7.3 um3 Low 7.4-10.4 Abs Neutrophils 5.6 10^3/uL 1.5-7.7 Abs Lymphocytes 2.5 10^3/uL 1.0-4.8 Abs Monocytes 1.0 10^3/uL High 0-0.8 Abs Eosinophils 0.4 10^3/uL 0-0.6 Abs Basophils 0.1 10^3/uL 0-0.2 Abs Nucleated RBC 0 10^3/uL Granulocyte % 58.5 % 38-83 Lymphocyte % 25.8 % 25-47 Monocyte % 10.3 % High 0-7 Eosinophil % 4.4 % 0-6 Basophil % 1.0 % 0-2 Nucleated Red Blood Cells % 0 Comp Metabolic Panel 07/05/2018 Sodium 139 mmol/L 135-145 Potassium 4.7 mmol/L 3.5-5.0 Chloride 103 mmol/L 101-111 Co2 Carbon Dioxide 26 mmol/L 22-32 Anion Gap 10 mmol/L 2-11 Glucose 212 mg/dL High 70-100 Blood Urea Nitrogen 26 mg/dL High 6-24 Creatinine 1.52 mg/dL High 0.67-1.17 BUN/Creatinine Ratio 17.1 8-20 Calcium 9.4 mg/dL 8.6-10.3 Total Protein 6.8 g/dL 6.4-8.9 Albumin 4.2 g/dL 3.2-5.2 Globulin 2.6 g/dL 2-4 Albumin/Globulin Ratio 1.6 1-3 Total Bilirubin 0.30 mg/dL 0.2-1.0 Alkaline Phosphatase 80 U/L 34-104 Alt 13 U/L 7-52 Ast 13 U/L 13-39 Egfr Non- 44.3 >60 Egfr 53.7 >60 1 Laboratory test finding 07/05/2018 PSA Screening 10.996 ng/mL High 0- 4.000 2 Urinalysis Profile 07/05/2018 Urine Color Yellow Urine Appearance Clear Urine Specific Jber 1.035 High 1.010-1.030 Urine pH 5 5-9 Urine Urobilinogen Negative Negative Urine Ketones Negative Negative Urine Protein 2+(100 mg/dL) Negative Urine Leukocytes Negative Negative Urine Blood Negative Negative Urine Nitrite Negative Negative Urine Bilirubin 1+ Negative Urine Glucose 3+(>=500 mg/dL) Negative Laboratory test finding 07/05/2018 Hemoglobin A1c 8.9 % High 4.0-5.6 3 (Glyco HGB) Inr/Protime 12/20/2017 Inr 1.26 High 0.77-1.02 4 Inr/Protime 12/16/2017 Inr 2.41 High 0.77-1.02 Inr/Protime 12/13/2017 Inr 2.37 High 0.77-1.02 5 Inr/Protime 12/09/2017 Inr 1.95 High 0.77-1.02 Inr/Protime 12/06/2017 Inr 4.08 High 0.77-1.02 6 Inr/Protime 12/02/2017 Inr 2.11 High 0.77-1.02 7 Inr/Protime 11/29/2017 Inr 1.73 High 0.77-1.02 8 Urine Culture And 11/12/2017 Urine Culture SEE RESULT 9 Sensitivities BELOW Comp Metabolic Panel 11/12/2017 Sodium 134 mmol/L 133-145 Potassium 5.0 mmol/L 3.5-5.0 Chloride 101 mmol/L 101-111 Co2 Carbon Dioxide 23 mmol/L 22-32 Anion Gap 10 mmol/L 2-11 Glucose 217 mg/dL High 70-100 Blood Urea Nitrogen 26 mg/dL High 6-24 Creatinine 1.69 mg/dL High 0.67-1.17 BUN/Creatinine Ratio 15.4 8-20 Calcium 9.6 mg/dL 8.6-10.3 Total Protein 6.9 g/dL 6.4-8.9 Albumin 4.1 g/dL 3.2-5.2 Globulin 2.8 g/dL 2-4 Albumin/Globulin Ratio 1.5 1-3 Total Bilirubin 0.30 mg/dL 0.2-1.0 Alkaline Phosphatase 76 U/L 34-104 Alt 13 U/L 7-52 Ast 12 U/L Low 13-39 Egfr Non- 39.2 >60 Egfr 50.5 >60 10 Type & Screen 11/12/2017 Patient Blood Type O Positive Antibody Screen NEGATIVE Urinalysis Profile 11/12/2017 Urine Color Yellow Urine Appearance Cloudy Urine Specific Jber 1.024 1.010-1.030 Urine pH 5.0 5-9 Urine Urobilinogen Negative Negative Urine Ketones Trace Negative Urine Protein 1+(30 mg/dL) Negative Urine Leukocytes Negative Negative Urine Blood Negative Negative Urine Nitrite Negative Negative Urine Bilirubin Negative Negative Urine Glucose 3+(>=500 mg/dL) Negative Urine White Blood Cell Absent Absent Urine Red Blood Cell Absent Absent Urine Bacteria Absent Absent Urine Hyaline Casts Present Absent Laboratory test finding 11/12/2017 Partial Thrombo Time 37.6 seconds High 26.0-36.3 PTT Inr/Protime 11/12/2017 Inr 1.96 High 0.77-1.02 CBC Auto Diff 11/12/2017 White Blood Count 12.3 10^3/uL High 3.5-10.8 Red Blood Count 4.58 10^6/uL 4.0-5.4 Hemoglobin 13.8 g/dL Low 14.0-18.0 Hematocrit 42 % 42-52 Mean Corpuscular Volume 91 fL 80-94 Mean Corpuscular Hemoglobin 30 pg 27-31 Mean Corpuscular HGB Conc 33 g/dL 31-36 Red Cell Distribution Width 13 % 10.5-15 Platelet Count 385 10^3/uL 150-450 Mean Platelet Volume 7 um3 Low 7.4-10.4 Abs Neutrophils 7.8 10^3/uL High 1.5-7.7 Abs Lymphocytes 3.1 10^3/uL 1.0-4.8 Abs Monocytes 1.1 10^3/uL High 0-0.8 Abs Eosinophils 0.3 10^3/uL 0-0.6 Abs Basophils 0 10^3/uL 0-0.2 Abs Nucleated RBC 0 10^3/uL Granulocyte % 63.0 % 38-83 Lymphocyte % 25.2 % 25-47 Monocyte % 9.0 % 1-9 Eosinophil % 2.5 % 0-6 Basophil % 0.3 % 0-2 Nucleated Red Blood Cells % 0.1 1 Because ethnic data is not always readily available, this report includes an eGFR for both -Americans and non- Americans. The National Kidney Disease Education Program (NKDEP) does not endorse the use of the MDRD equation for patients that are not between the ages of 18 and 70, are , have extremes of body size, muscle mass, or nutritional status, or are non- or non-. According to the National Kidney Foundation, irrespective of diagnosis, the stage of the disease is based on the level of kidney function: Stage Description GFR(mL/min/1.73 m(2)) 1 Kidney damage with normal or decreased GFR 90 2 Kidney damage with mild decrease in GFR 60-89 3 Moderate decrease in GFR 30-59 4 Severe decrease in GFR 15-29 5 Kidney failure <15 (or dialysis) 2 Serum levels of PSA measured using the Warp 9 DXI Hybritech immunoassay should not be interpreted as absolute evidence of the presence or absence of disease. The PSA value should be used in conjunction with other pertinent clinical diagnostic procedures. The values obtained with different assay methods or kits cannot be used interchangeably. 3 Therapeutic target for the treatment of diabetes mellitus patients is <7% HBA1C, and in selective patients <6.0%. Please refer to [place] Diabetes Association diabetic care guidelines for further information. 4 PLEASE CALL STAT RESULTS TO [phone] AND FAX RESULTS TO [phone] PLEASE CALL STAT RESULTS TO [phone] AND FAX STAT RESULTS TO [phone] CALL STAT RESULTS TO [phone] [id number] SEE RESULT BELOW Name: NICOLÁSARNULFO : [address]: Sanam Hensley MD Acct: [id number] Unit: [id number] AGE: 82 Location: [facility] Re11/12/17 SEX: M Status: REG REF SPEC: [id number] MYA: 11/12/17 [facility] DR: Sanam Hensley MD REQ: [id number] RECD: 11/12/17 STATUS: [facility] DR: Tanvi Latham MD _ SOURCE: URINE SPDESC: ORDERED: Urine Culture QUERIES: Urine Source: Clean Catch Procedure Result Reported Site Urine Culture Final 11/13/17- 1230 ML No Growth (<1,000 CFU/mL) * ML - MAIN LAB (PSC1) . END OF REPORT * ML=Testing performed at Main Lab DEPARTMENT OF PATHOLOGY, [address] [place] [address] Efraín Ludwig M.D. Director [facility] # [id number] 10 Because ethnic data is not always readily available, this report includes an eGFR for both -Americans and non- Americans. The National Kidney Disease Education Program (NKDEP) does not endorse the use of the MDRD equation for patients that are not between the ages of 18 and 70, are , have extremes of body size, muscle mass, or nutritional status, or are non- or non-. According to the National Kidney Foundation, irrespective of diagnosis, the stage of the disease is based on the level of kidney function: Stage Description GFR(mL/min/1.73 m(2)) 1 Kidney damage with normal or decreased GFR 90 2 Kidney damage with mild decrease in GFR 60-89 3 Moderate decrease in GFR 30-59 4 Severe decrease in GFR 15-29 5 Kidney failure <15 (or dialysis) Procedures Date CPT Code Description Status 07/06/2018 55123 EKG Tracing & Interpretation Completed 11/23/2017 76482 TKR Total Knee Replacement Completed 11/23/2017 76040 TKR Total Knee Replacement Completed 11/18/2017 26572 Treadmill Interp/Report Only Completed 11/18/2017 42504 Stress Test Supervsn W/Out I/R Completed 11/17/2017 32714 Holter Monitor Review (24 hr)dr review & interp only Completed 11/15/2017 98244 ECG Monitor/Recording W/Visual Superimposition Scanning Completed 11/12/2017 52704 ECHO Transthoracic, Real-Time 2D With Doppler And Color Completed Flow 11/12/2017 00101 ECHO Transthoracic, Real-Time 2D With Doppler And Color Completed Flow 10/26/2017 72035 EKG Tracing & Interpretation Completed 12/16/2005 17109 Echocardiogram Completed 12/16/2005 69810 Pulse Doppler & Continuous Wave Completed 12/16/2005 99676 Color Doppler Completed 12/15/2005 64289 Treadmill Interp/Report Only Completed 12/15/2005 79968 Stress Test Supervsn W/Out I/R Completed 12/09/2005 13458 EKG Tracing & Interpretation Completed 12/19/2002 41283 ECHO/Stress Completed 12/19/2002 24218 Treadmill Interp/Report Only Completed 12/19/2002 93235 Stress Test Supervsn W/Out I/R Completed 12/14/2002 16169 Color Doppler Completed 12/14/2002 15315 Pulse Doppler & Continuous Wave Completed 12/14/2002 85763 Echocardiogram Completed Encounters Type Date Location Provider CPT E/M Dx Office Visit 05/23/2018 [facility] Sanam Hensley M.D. 96214 M25.561 8:45a Of [facility] M25.461 M17.11 Z96.652 Office Visit 11/23/2017 [facility] Mary Horvath, 18913 I48.91 11:37a [facility] [employer] [facility] E11.9 Z96.652 I48.91 Office Visit 10/26/2017 9:40a [facility] Cuate Martinez M.D. 04050 M17.0 Z01.810 R26.2 R94.31 I10 E78.00 I48.0 R53.83 I44.0 I45.0 Office Visit 10/15/2017 2:00p [facility] Sanam Hensley M.D. 75927 M25.461 [facility].A. M25.462 M25.562 M25.561 M17.0 Office Visit 12/09/2005 10:40a [facility] Cuate Martinez, 39200 794.31 Shonda 427.31 Plan of Care Future Appointment(s):07/26/2018 2:30 pm - Carl Sanchez PA-C at [facility].A.07/26/2018 2:30 pm - MORELIA Arce at [facility].A.07/26/2018 2:30 pm - Sanam Hensley M.D. at [facility].A.07/13/2018 10:00 am - Sanam Hensley M.D. at [facility].07/06/2018 - Elsie Anderson N.P.R94.31 Abnormal electrocardiogram [ECG] [EKG]I49.1 Atrial premature gdpsekjcddhxrkR73.91 Unspecified atrial fibrillationComments:You are in the regular rhythm today.Follow up:6 mo OV MauserRecommendations:Hold warfarin 4 days before surgery Take Baby ASA 81mg when off coumadin (if ok with dr Hensley) Continue metoprolol and statin during uziuyjuG00.9 Type 2 diabetes mellitus without xugozjqthxgbiU15.3 Ventricular premature depolarization
[2018-07-26] MEDS ORDERED: fentaNYL* 50 MCG/ML 2 ML VIAL (100 MCG VIAL) ONE (09:18)
[2018-07-26] MEDS ORDERED: Midazolam* 1 MG/ML 5 ML VIAL (5 MG) ONE (09:18)
[2018-07-26] MEDS ORDERED: KETAMINE HCL* 50 MG/ML 10 ML VIAL ONE (09:18)
[2018-07-26 09:26] LABS: INR 0.97 (0.77-1.02)
[2018-07-26] MEDS ORDERED: Lidocaine 1%* 5 ML VIAL ONE (10:33)
[2018-07-26] MEDS ORDERED: ROPIVACAINE 5 MG/ML 30 ML BTL (0.5%) ONE (10:33)
[2018-07-26] MEDS ORDERED: Bupivacaine 0.5% SDV PF* 30ML VIAL ONE (11:41)
[2018-07-26] MEDS ORDERED: Ondansetron INJ* 2 MG/ML VIAL ONE (11:45)
[2018-07-26] MEDS ORDERED: Dexamethasone IV* 4 MG/ML 1 ML (4 MG) ONE (11:45)
[2018-07-26] MEDS ORDERED: Ketorolac INJ* 30 MG/ML 1 ML VIAL ONE (11:45)
[2018-07-26] MEDS ORDERED: Propofol* 10 MG/ML 20 ML BTL IV PUSH ONE ×2 (11:45→12:52)
[2018-07-26] MEDS ORDERED: Lidocaine 2% PF * 5 ML VIAL ONE (11:47)
[2018-07-26] MEDS ORDERED: Bupivacaine-MPF SPINAL* 7.5 MG/ML - 2ML AMP ONE (11:47)
[2018-07-26] MEDS ORDERED: Acetaminophen IV 1GM/100ML * 1,000 MG/100 ML VIAL IVPB ONE (12:36)
[2018-07-26] MEDS ORDERED: DiMENhydriNATE IV* 50 MG/ML VIAL IV PUSH PRN (12:36)
[2018-07-26] MEDS ORDERED: Naloxone* 0.4 MG/ML 1 ML VIAL IV PRN (12:36)
[2018-07-26] MEDS ORDERED: HYDROmorphone INJ1* 1 MG/ML SYRINGE IV PRN (12:36)
[2018-07-26] MEDS ORDERED: Gabapentin CAP(*) 100 MG PO ONE (12:39)
[2018-07-26] MEDS ORDERED: Ondansetron INJ* 2 MG/ML VIAL IV PRN (13:58)
[2018-07-26] MEDS ORDERED: diPHENhydraMINE IV* 50 MG/ML 1 ml VIAL (BENADRYL) IV PRN (13:58)
[2018-07-26] MEDS ORDERED: Acetaminophen TAB* 325 MG PO PRN (13:58)
[2018-07-26] MEDS ORDERED: Morphine INJ* 4 MG/ML 1 ML SYRINGE (NEW SYRINGE VERSION) IV PRN (13:58)
[2018-07-26] MEDS ORDERED: Bisacodyl SUPP* 10 MG SUPP PR PRN (13:58)
[2018-07-26] MEDS ORDERED: Magnesium Hydroxide LIQ* 30 ML UDC PO PRN (13:58)
[2018-07-26] MEDS ORDERED: Gabapentin CAP(*) 100 MG ONE (14:32)
[2018-07-26] MEDS ORDERED: Acetaminophen IV 1GM/100ML * 100 ML ONE (14:32)
--- NOTE | 2018-07-26 14:40 | RAD ---
HISTORY: S/P RTKA COMPARISONS: May 23, 2018 VIEWS: 2 , Frontal and lateral views of the right knee FINDINGS: BONE DENSITY: There is diffuse osteopenia. BONES: The patient is status post right knee arthroplasty. There is no hardware failure or osteolysis. JOINTS: The patient is status post right knee arthroplasty. ALIGNMENT: There is no dislocation. SOFT TISSUES: Unremarkable. OTHER FINDINGS: None. IMPRESSION: STATUS POST RIGHT KNEE ARTHROPLASTY
[2018-07-26] MEDS ORDERED: Dextrose 50% Syringe 50 ML* 25 GM/50 ML SYRINGE IV PUSH PRN (15:44)
--- NOTE | 2018-07-26 16:47 | PN ---
Progress Note - Progress Note Date of Service: 07/26/18 Note: resting comfortably. pain well controlled with current meds. able to dorsi flex/ plantar flex, 2+DP pulse and intact sensation. denies SOB/calf pain. dressing c/ d/i
[2018-07-26] MEDS ORDERED: Warfarin TAB(*) 6 MG PO ONE (17:00)
[2018-07-26] MEDS: Atorvastatin* 10 MG TAB PO SCH ×2 (17:12→20:14)
[2018-07-26] MEDS: Lisinopril TAB* 5 MG PO SCH ×2 (17:12→20:13)
[2018-07-26] MEDS: Atenolol TAB* 50 MG PO SCH ×2 (17:12→20:14)
[2018-07-26] MEDS: oxyCODONE/Acetamin 5/325 MG* TAB PO PRN ×2 (17:12→23:21)
[2018-07-26] MEDS: Insulin LISPRO* 1 UNITS UNIT SUBCUT SCH ×2 (18:08→20:36)
[2018-07-26] MEDS: ceFAZolin 1 GM in Dextrose (*) 1 GM/50 ML BAG IVPB SCH (19:57)
[2018-07-26] MEDS: Docusate CAP* 100 MG PO SCH (20:13)
[2018-07-26] MEDS: Magnesium Hydroxide LIQ* 30 ML UDC PO SCH (20:14)
--- NOTE | 2018-07-26 20:20 | CONS ---
CC: Dr. Latham; Dr. Hensley CONSULTATION REPORT: DATE OF CONSULT: 07/26/18 PATIENT OF: Dr. Sanam Hensley. CONSULTED TO: Dr. La Kothari. PRIMARY CARE PROVIDER: Dr. Tanvi Latham. CHIEF COMPLAINT: Right knee pain. REASON FOR CONSULT: Medical co-management. HISTORY OF PRESENT ILLNESS: Mr. Monzon is an 82-year-old gentleman with a past medical history signi ficant for hypertension, hyperlipidemia, diabetes mellitus, atrial fibrillation for which he has been on Coumadin as well as BPH, who was admitted earlier today for an elective right knee arthroplasty. The patient has had complaints of right knee pain for a long time that unfortunately failed conserva tive treatment for osteoarthritis and he was found to be a good candidate to proceed with right total knee arthroplasty. The patient was taken to the operating room earlier today and had right total kn ee replacement. He was transferred from recovery room to short-stay unit in a stable condition and g iven his medical comorbidities, we were asked to see the patient for co-management of his hypertensio n and diabetes. At the time of consultation, the patient reports doing well. Denies any chest pain, headache, or shortness of breath. PAST MEDICAL HISTORY: Significant for: 1. Hypertension. 2. Insulin-dependent diabetes mellitus. 3. Atrial fibrillation. 4. Hyperlipidemia. 5. Benign prostatic hypertrophy. PAST SURGICAL HISTORY: Significant for: 1. Bilateral knee arthroscopy. 2. Left total knee arthroplasty. 3. Cyst removed from the jaw. 4. Prostate surgery. The patient is unsure if it was a TURP versus laser vaporization. CURRENT MEDICATIONS: His medications at home include: 1. Atenolol 50 mg p.o. q.p.m. 2. Lipitor 10 mg p.o. daily. 3. Glipizide 10 mg p.o. b.i.d. 4. Insulin glargine 20 units subcu b.i.d. 5. Lisinopril 2.5 mg p.o. daily. 6. Metformin 1000 mg p.o. b.i.d. 7. Percocet 5/325 one tablet q.6 hours as needed for pain. 8. Coumadin 7.5 mg q. Wednesday, Wednesday, and alternating with Coumadin 5 mg every Wednesday, Wed, Wednesday, and Wednesday. ALLERGIES: He has no known drug allergies. FAMILY HISTORY: Reviewed and noncontributory. SOCIAL HISTORY: The patient is . He lives with his . He is a nonsmoker, but he chews to bacco. Denies alcohol use and he listed his , Stephani Monzon, as the health proxy carrier and he wi shes to be a full code. REVIEW OF SYSTEMS: A complete 12-point review of systems was examined and that was essentially negat denisse other than listed on HPI. PHYSICAL EXAM: General: He is a pleasant, older male, appears healthy, and in no acute distress or discomfort at the time of admission. Vitals revealed temperature of 97.3, pulse of 60, blood pressur e 134/74, respirations of 11 with O2 sat of 98% on room air. HEENT: Head is normocephalic, atraumat ic. Sclerae anicteric. PERRLA, EOMs intact. Oropharynx is pink and moist. Neck: Supple. Trachea midline. No cervical adenopathy, thyromegaly, or JVD. Lungs: Clear to auscultation bilaterally. H eart: Regular rate and rhythm. Normal S1 and S2 without rubs, murmurs, or gallops. Back: With nor mal curvature. No CVA tenderness. Abdomen: Round, soft, nontender, nondistended. There are no her nias, masses, or hepatosplenomegaly. Extremities: Without cyanosis, clubbing, or edema. Neurologic: He is awake, alert, and oriented x3. Handgrip is equal bilaterally. Tongue is midline and sensatio n is intact. Rectal Exam: Deferred at this time. IMPRESSION: An 82-year-old gentleman with past medical history significant for hypertension, hyperli pidemia, diabetes mellitus, and osteoarthritis, who is postop day #0 status post right total knee art hroplasty, who was admitted under orthopedic services and will be consulted by hospitalist services f or the following. ASSESSMENT AND PLAN: 1. Status post right total knee replacement. The patient appears to be doing well and his pain is w ell controlled. He has a Bacon catheter in with clear urine, likely discontinue his catheter in the morning and start his physical therapy. We will defer all other related pain control and coagulation to the orthopedic team. 2. Hypertension. He appears to be normotensive in the immediate postoperative period. I will jacquelyn nue his lisinopril and atenolol as prescribed. 3. Hyperlipidemia. I will continue his statin therapy. 4. Insulin-dependent diabetes mellitus. I will hold his glipizide and metformin and the patient courtney l be covered with his Lantus starting tomorrow morning with 20 units subcu b.i.d. and also will be co sarah with lispro per sliding scale with glucose checks q.a.c. and q.h.s. 5. History of atrial fibrillation. Appears to be rate controlled and the patient started warfarin t herapy tonight. 6. DVT prophylaxis. He is on Lovenox and being bridged to warfarin therapy with daily INR checks pe r orthopedic team. 7. Code status. He wishes to be a full code. TIME SPENT: Approximately 50 minutes spent on consultation of this patient for which greater than 50 % of the time taking history and performing physical exam. I went on and discussed the case with my attending, who agreed to plan of care. MORELIA SMILEY [id number]/CPS #: [id number]
[2018-07-27] MEDS: ceFAZolin 1 GM in Dextrose (*) 1 GM/50 ML BAG IVPB SCH ×2 (03:34→11:31)
[2018-07-27] MEDS: oxyCODONE/Acetamin 5/325 MG* TAB PO PRN ×5 (03:35→21:54)
[2018-07-27 05:19] LABS: Hematocrit 30 % (42-52); Hemoglobin 9.9 g/dl (14.0-18.0); Platelet Count 337 10^3/ul (150-450)
[2018-07-27 05:28] LABS: INR 1.06 (0.77-1.02)
[2018-07-27 05:38] LABS: EGFR Non-African American 46.1 (>60)
[2018-07-27] MEDS: Docusate CAP* 100 MG PO SCH ×2 (08:32→21:56)
[2018-07-27] MEDS: Vitamin THERAPEUTIC TAB PO SCH (08:32)
[2018-07-27] MEDS: Magnesium Hydroxide LIQ* 30 ML UDC PO SCH ×2 (08:32→21:56)
[2018-07-27] MEDS: Insulin GLARGINE(*) 1 UNITS UNIT SUBCUT SCH ×2 (08:32→22:20)
[2018-07-27] MEDS: Insulin LISPRO* 1 UNITS UNIT SUBCUT SCH ×4 (08:33→22:19)
--- NOTE | 2018-07-27 09:20 | PN ---
Progress Note - Progress Note Date of Service: 07/27/18 SOAP: Subjective: [] Patient seen and examined OOB in chair. He feels well with well controlled knee pain. Denies CP, SOB, dizziness, nausea. Objective: []General: Well appearing, NAD RLE: Right knee dressing CDI. Thigh is soft, DF/PF intact, DP2+, sensation intact distally. BL calves supple and nontender without erythema, edema or palpable cords Assessment: []POD 1 sp right total knee arthroplasty Dr Hensley Plan: []WBAT PT/OT Lovenox bridge to coumadin, coumadin 8 mg today. A fib, takes coumadin at home Repeat Na tomorrow mildly low sodium Vital Signs Temp 98.3 F 07/27/18 07:11 Pulse 58 07/27/18 07:11 Resp 18 07/27/18 07:33 BP 115/62 07/27/18 07:11 Pulse Ox 97 07/27/18 07:33 Intake & Output 07/26/18 07/27/18 07/27/18 18:59 06:59 18:59 Intake Total 2940 1845 120 Output Total 200 575 Balance 2740 1270 120 Weight 239 lb Intake: IV Fluids 2200 1005 ABX - CEFAZOLIN 55 LR 2200 950 Oral 740 840 120 Output: Bacon 200 575 Other: # Bowel Movements 0 Laboratory Last Values Hgb 9.9 g/dl (14.0-18.0) L 07/27/18 04:47 Hct 30 % (42-52) L 07/27/18 04:47 Plt Count 337 10^3/ul (150-450) 07/27/18 04:47 MPV 7.0 um3 (7.4-10.4) L 07/27/18 04:47 INR (Anticoag Therapy) 1.06 (0.77-1.02) H 07/27/18 04:47 Sodium 134 mmol/L (135-145) L 07/27/18 04:47 Potassium 4.6 mmol/L (3.5-5.0) 07/27/18 04:47 Chloride 104 mmol/L (101-111) 07/27/18 04:47 Carbon Dioxide 25 mmol/L (22-32) 07/27/18 04:47 Anion Gap 5 mmol/L (2-11) 07/27/18 04:47 BUN 29 mg/dL (6-24) H 07/27/18 04:47 Creatinine 1.47 mg/dL (0.67-1.17) H 07/27/18 04:47 Est GFR ( Amer) 55.8 (>60) 07/27/18 04:47 Est GFR (Non-Af Amer) 46.1 (>60) 07/27/18 04:47 BUN/Creatinine Ratio 19.7 (8-20) 07/27/18 04:47 Glucose 183 mg/dL (70-100) H 07/27/18 04:47 POC Glucose (mg/dL) 297 mg/dL (70-100) H 07/26/18 20:32 Calcium 8.4 mg/dL (8.6-10.3) L 07/27/18 04:47
[2018-07-27] MEDS: Enoxaparin(*) 40 MG/0.4 ML SYR SUBCUT SCH (12:01)
--- NOTE | 2018-07-27 16:29 | OP ---
DATE OF OPERATION: 07/26/18 - ROOM #335 DATE OF : 39 ATTENDING SURGEON: Sanam Hensley MD. NEGATIVE CLEANER: MORELIA Bailey. Mr. Sanchez did help throughout the procedure with preparation of the leg, wound retraction, manipulation of the knee and wound closure. ANESTHESIOLOGIST: Dr. Gomez. ANESTHESIA: Spinal. PRE-OP DIAGNOSIS: Severe end-stage degenerative osteoarthritis of the right knee joint. POST-OP DIAGNOSIS: Severe end-stage degenerative osteoarthritis of the right knee joint. OPERATIVE PROCEDURE: Right total knee arthroplasty. BRIEF HISTORY AND INDICATIONS: This is an 82-year-old gentleman with years of increasingly severe right knee pain. He failed conservative treatment with antiinflammatories, pain medication, intraarticular injections, and physical therapy. Due to continued pain and decreased quality of life, he elected to undergo a right total knee arthroplasty. Informed consent was obtained from the patient. He understood the risks of procedure included, but were not limited to bleeding, infection, damage to nearby structures, continued pain, need for further surgery, knee stiffness, loss of motion, stroke, heart attack, blood clot, and . He wished to proceed. INTRAOPERATIVE FINDINGS: The patient was noted to have a severe end-stage arthritis with complete loss of cartilage in all 3 compartments. He had extensive osteophyte formation. The patient had a 25-degree flexion contracture to begin the case with significant contracture of the hamstring tendon. TOURNIQUET TIME: 55 minutes. COMPLICATIONS: None. ESTIMATED BLOOD LOSS: 200 cc. SPECIMEN: Bone and cartilage from the right knee joint sent to Pathology. HARDWARE USED: This is a cemented [employer] total knee arthroplasty hardware. Two packages of Simplex bone cement were used. For the femur, a size 7 right posterior stabilized Legion femoral component. For the tibia, a size 7 Qi II right tibial base plate. For the insert, an 11-mm posterior stabilized articular insert size 7/8 and for the patella, a 35-mm, 3-peg all- poly patella. DESCRIPTION OF PROCEDURE: Mr. Monzon was identified in the preanesthesia unit. His right lower extremity was marked as the correct operative side. Informed consent was signed and placed in the chart. The patient was taken to the operating room and placed under spinal anesthesia. A Bacon catheter was placed. Tourniquet was placed on the right thigh. Right lower extremity was prepped and draped in the usual sterile fashion. Preop time-out was made to correctly identify the patient's side and site. Appropriate perioperative antibiotics were given within 1 hour of incision. Tourniquet was inflated and total tourniquet time for this procedure was 55 minutes. A midline incision was made with a 10-blade and carried down to the extensor mechanism. A new 10-blade was used to make a standard medial parapatellar arthrotomy. The patella was subluxed laterally. Electrocautery was used to elevate the soft tissue off the superomedial tibia to the mid sagittal plane. The knee was flexed up. The anterior horn of the lateral meniscus and ACL were sharply released. A drill was used to enter the distal femur. Intramedullary distal femoral cutting guide was pinned on the distal femur. Oscillating saw was used to make the distal femoral cut. Next, the external rotation guide was pinned on the distal femur. Distal femur was sized to a size 7. The oscillating saw was used to make the 4 chamfer cuts. PCL was completely released and the tibia was subluxed anteriorly. Extramedullary tibial cutting guide was pinned on the proximal tibia. Oscillating saw was used to make the proximal tibial cut perpendicular to the mechanical axis of the tibia. The bone was carefully removed. The knee was brought out into full extension. Some medial soft tissue elevation was performed to allow the medial tibial plateau and some osteophytes were removed. The spacer block had excellent fit with the knee in full extension. Medial and lateral ligaments were well balanced. Flexion and extension gaps were well balanced. The knee was flexed up. Lamina recycler forklift driver truck driver was placed both medially and laterally. Any remaining meniscus was carefully removed using electro-cautery. A curved osteotome was used to remove any posterior osteophytes. Tibial tray and drop carmen were placed and once again confirmed a satisfactory tibial cut. A size 7 right posterior stabilized femoral component trial was impacted onto the distal femur and had excellent fit. The box for the posterior stabilized implant was prepared using a reamer and box-cut osteotome. A size 7 tibial tray trial with an 11-mm insert trial was placed and the knee was taken through a range of motion. The knee had full extension to 130 degrees of flexion with satisfactory patellofemoral tracking. The patella was everted. 9 mm of patellar bone and cartilage was carefully removed using an oscillating saw. The patella was sized to a size 35. Three peg holes were drilled through the size 35 guide. A 35 trial patella was placed and the knee was taken through a range of motion. There was satisfactory patellofemoral tracking. All trials were carefully removed. The tibia was subluxed anteriorly and sized to a size 7. Proximal tibia was prepared using a size 7 keel punch. All bony cut surfaces were copiously irrigated with sterile saline and dried. Final implants were cemented into place starting with the tibia followed by the femur and last the patella. An 11-mm insert trial was placed and the knee was brought out into full extension. The tourniquet was turned down at 55 minutes. The knee was copiously irrigated with sterile saline. Electrocautery was used to obtain meticulous hemostasis. Once the cement had fully cured, the insert trial was removed. Any excess cement was removed from around the capsule and hardware. Final insert chosen was an 11-mm posterior stabilized articular insert size 7/8. This was locked into position on the tibial tray. Stability of the insert was checked and rechecked and noted to be stable. The knee was taken through range of motion, had full extension to 130 degrees of flexion. The extensor mechanism was closed using interrupted #1 Vicryls. The rest of the incision was closed using 0 and 2-0 Vicryls. Skin was closed using running 3-0 nylon suture. Sterile Xeroform, 4x4s, and Webril were used to cover the incision. Gregory wrap and cold pack were placed over this. The patient's anesthesia was reversed without difficulty. He was taken to the PACU in stable condition. Intended weightbearing will be weightbearing as tolerated. Intended DVT prophylaxis will be Coumadin with a Lovenox bridge. [id number]/[facility] #: [id number] RANDI
[2018-07-27] MEDS ORDERED: Warfarin TAB(*) 4 MG PO ONE (17:00)
[2018-07-27] MEDS: Lisinopril TAB* 5 MG PO SCH (21:55)
[2018-07-27] MEDS: Atorvastatin* 10 MG TAB PO SCH (21:55)
[2018-07-27] MEDS: Atenolol TAB* 50 MG PO SCH (21:56)
[2018-07-28] MEDS: oxyCODONE TAB* 5 MG TAB PO PRN ×4 (01:26→14:34)
[2018-07-28] MEDS: oxyCODONE/Acetamin 5/325 MG* TAB PO PRN ×4 (03:28→22:23)
[2018-07-28 04:59] LABS: Hematocrit 29 % (42-52); Hemoglobin 10.1 g/dl (14.0-18.0); Mean Platelet Volume 6.8 um3 (7.4-10.4); Platelet Count 340 10^3/ul (150-450)
[2018-07-28 05:06] LABS: INR 1.25 (0.77-1.02)
[2018-07-28] MEDS ORDERED: Cyclobenzaprine TAB* 10 MG ONE (07:49)
[2018-07-28] MEDS: Vitamin THERAPEUTIC TAB PO SCH (07:51)
[2018-07-28] MEDS: Docusate CAP* 100 MG PO SCH ×2 (07:51→22:11)
[2018-07-28] MEDS: Magnesium Hydroxide LIQ* 30 ML UDC PO SCH ×2 (07:51→21:55)
[2018-07-28] MEDS ORDERED: Cyclobenzaprine TAB* 10 MG PO PRN (07:58)
[2018-07-28] MEDS: Insulin LISPRO* 1 UNITS UNIT SUBCUT SCH ×4 (08:49→22:15)
[2018-07-28] MEDS: Insulin GLARGINE(*) 1 UNITS UNIT SUBCUT SCH ×2 (08:49→22:16)
[2018-07-28] MEDS: Enoxaparin(*) 40 MG/0.4 ML SYR SUBCUT SCH (12:35)
--- NOTE | 2018-07-28 13:30 | PN ---
Progress Note - Progress Note Date of Service: 07/28/18 SOAP: Subjective: []Patient seen and examined OOB in chair. His pain is more severe today than yesterday but remains tolerable. Denies CP, SOB, dizziness, nausea. Objective: []General: Well appearing, NAD RLE: Right knee dressing changed, incision CDI. Thigh is soft, DF/PF intact, DP2 +, sensation intact distally. BL calves supple and nontender without erythema, edema or palpable cords Assessment: []POD 2 sp right total knee arthroplasty Dr Hensley Plan: []WBAT PT/OT Lovenox bridge to coumadin, coumadin 8 mg today. A fib, takes coumadin at home hyponatremia remains, continue to monitor tomorrow DC home potentially today but patient was in quite a bit of pain when I saw him this morning, more likely tomorrow Vital Signs Temp 98.6 F 07/28/18 11:36 Pulse 71 07/28/18 11:36 Resp 16 07/28/18 12:35 BP 138/61 07/28/18 11:36 Pulse Ox 96 07/28/18 11:36 Intake & Output 07/27/18 07/28/18 07/28/18 18:59 06:59 18:59 Intake Total 450 900 120 Output Total 400 1225 0 Balance 50 -325 120 Intake: Oral 450 900 120 Output: Urine 400 1225 0 Other: # Bowel Movements 0 Laboratory Last Values Hgb 10.1 g/dl (14.0-18.0) L 07/28/18 04:52 Hct 29 % (42-52) L 07/28/18 04:52 Plt Count 340 10^3/ul (150-450) 07/28/18 04:52 MPV 6.8 um3 (7.4-10.4) L 07/28/18 04:52 INR (Anticoag Therapy) 1.25 (0.77-1.02) H 07/28/18 04:52 Sodium 133 mmol/L (135-145) L 07/28/18 04:52 Potassium 4.6 mmol/L (3.5-5.0) 07/27/18 04:47 Chloride 104 mmol/L (101-111) 07/27/18 04:47 Carbon Dioxide 25 mmol/L (22-32) 07/27/18 04:47 Anion Gap 5 mmol/L (2-11) 07/27/18 04:47 BUN 29 mg/dL (6-24) H 07/27/18 04:47 Creatinine 1.47 mg/dL (0.67-1.17) H 07/27/18 04:47 Est GFR ( Amer) 55.8 (>60) 07/27/18 04:47 Est GFR (Non-Af Amer) 46.1 (>60) 07/27/18 04:47 BUN/Creatinine Ratio 19.7 (8-20) 07/27/18 04:47 Glucose 183 mg/dL (70-100) H 07/27/18 04:47 POC Glucose (mg/dL) 213 mg/dL (70-100) H 07/28/18 11:46 Calcium 8.4 mg/dL (8.6-10.3) L 07/27/18 04:47
[2018-07-28] MEDS ORDERED: Warfarin TAB(*) 4 MG PO ONE (17:00)
[2018-07-28] MEDS: Lisinopril TAB* 5 MG PO SCH (22:12)
[2018-07-28] MEDS: Atenolol TAB* 50 MG PO SCH (22:13)
[2018-07-28] MEDS: Atorvastatin* 10 MG TAB PO SCH (22:13)
[2018-07-29] MEDS: oxyCODONE/Acetamin 5/325 MG* TAB PO PRN ×3 (03:19→16:00)
[2018-07-29 05:41] LABS: Hematocrit 27 % (42-52); Hemoglobin 9.1 g/dl (14.0-18.0); Mean Platelet Volume 7.2 um3 (7.4-10.4); Platelet Count 320 10^3/ul (150-450)
[2018-07-29 05:45] LABS: INR 1.33 (0.77-1.02)
[2018-07-29] MEDS: Magnesium Hydroxide LIQ* 30 ML UDC PO SCH (07:25)
[2018-07-29] MEDS: Docusate CAP* 100 MG PO SCH (07:25)
[2018-07-29] MEDS: Insulin GLARGINE(*) 1 UNITS UNIT SUBCUT SCH (09:53)
[2018-07-29] MEDS: Vitamin THERAPEUTIC TAB PO SCH (09:55)
[2018-07-29] MEDS: Insulin LISPRO* 1 UNITS UNIT SUBCUT SCH ×2 (09:55→12:43)
[2018-07-29 10:06] VITALS: BP 137/76
[2018-07-29] MEDS: Enoxaparin(*) 40 MG/0.4 ML SYR SUBCUT SCH (12:44)
[2018-07-29] MEDS ORDERED: Warfarin TAB(*) 6 MG PO ONE (17:00)
--- NOTE | 2018-08-01 05:58 | DS ---
DISCHARGE SUMMARY: DATE OF ADMISSION: 07/26/18 DATE OF DISCHARGE: 07/29/18 ATTENDING PHYSICIAN: Dr. Sanam Hensley.* (DICTATED BY MORELIA SMITH) ADMISSION DIAGNOSIS: Severe end-stage degenerative osteoarthritis of the right knee. DISCHARGE DIAGNOSIS: Severe end-stage degenerative osteoarthritis of the right knee. SURGERY PERFORMED: Right total knee arthroplasty. HOSPITAL COURSE: The patient is an 82-year-old gentleman with increasingly severe right knee pain over the last several years. He failed conservative management including anti-inflammatories, pain medication, intraarticular cortisone injections, and physical therapy. Due to ongoing pain and decreased quality of life, he elected to proceed with right total knee arthroplasty. He was taken to the operating room under the care of Dr. Sanam Hensley on the date of 07/26/18 for the aforementioned procedure. He tolerated the procedure well and left the operating room in stable condition. Postoperatively, he progressed satisfactorily with his physical therapy and occupational therapy goals. Postop day #2, he still had a [id number] amount of right knee pain which did not enable him to be discharged home. His pain levels did improve significantly by postoperative day 3. He had no postoperative complications followed by the medical inpatient hospitalist service. He was placed on Coumadin for DVT prophylaxis. He does take Coumadin for atrial fibrillation and will be placed on his usual dosages at home after today's dose of 8 mg. It was felt that he was medically and orthopedically stable for discharge to home on the date of 07/29/18. CONDITION ON DISCHARGE: The patient is stable. His right incision is healing without evidence of infection. There is minimal drainage. His calf is soft and nontender. He has active dorsiflexion of his right ankle. His sensation is intact distally. PLAN: Discharged to home. He will receive 6 mg of Coumadin on 07/29/18 and then will resume his usual dosage of Coumadin as per preoperatively, which is 7.5 mg on Wednesday, Wednesday, and , and 5 mg on Wednesday, Wednesday, Wednesday, and Wednesday. He will have repeat INR drawn on 08/01/18. He will follow up in the office with Dr. Hensley as scheduled in 10 to 14 days. He should call if there is any increased pain, any noted redness or increased drainage, calf pain or swelling. All questions were answered. MORELIA SMITH [id number]/[facility] #: [id number] RANDI
== END 2018-07-29 16:39 | disposition home health service (06) | DRG 470 ==
LOC: AA 08:41 → SSU 15:37
PROVIDERS: ADMIT Orthopaedic Surgery Adult Reconstructive Orthopaedic Surgery; ATTEND Orthopaedic Surgery Adult Reconstructive Orthopaedic Surgery
PROC: 0SRC0J9 Replacement of Right Knee Joint with Synthetic Substitute, Cemented, Open Approach (ICD-10-PCS; principal; 2018-07-26 11:00)
DX: M17.11 Unilateral primary osteoarthritis, right knee (principal); E87.1 Hypo-osmolality and hyponatremia; E11.9 Type 2 diabetes mellitus without complications; I10 Essential (primary) hypertension; I48.91 Unspecified atrial fibrillation; N40.0 Benign prostatic hyperplasia without lower urinary tract symptoms; Z96.652 Presence of left artificial knee joint; M25.461 Effusion, right knee; K42.9 Umbilical hernia without obstruction or gangrene; Z96.1 Presence of intraocular lens; E78.5 Hyperlipidemia, unspecified; M25.761 Osteophyte, right knee; I08.3 Combined rheumatic disorders of mitral, aortic and tricuspid valves; E66.9 Obesity, unspecified; F17.220 Nicotine dependence, chewing tobacco, uncomplicated; Z82.49 Family history of ischemic heart disease and other diseases of the circulatory system; Z82.3 Family history of stroke; Z83.3 Family history of diabetes mellitus; Z68.34 Body mass index [BMI] 34.0-34.9, adult; Z80.8 Family history of malignant neoplasm of other organs or systems; Z98.42 Cataract extraction status, left eye; Z98.41 Cataract extraction status, right eye; Z72.89 Other problems related to lifestyle; Z87.442 Personal history of urinary calculi; Z79.01 Long term (current) use of anticoagulants
CPT/HCPCS: 36415; 80048; 84300; 85014; 85018; 85049; 85610; 88305; 88311; A9270-GY; C1776; G8978-GP-CJ; G8979-GP-CI; G8987-GO-CI; G8988-GO-CI; G8989-GO-CI; J0690; J1100; J1650; J1885; J2250; J2270; J2405; J2704; J2795; J3010

== ENCOUNTER 2022-12-03 06:42 | Inpatient (IN) ==
[2022-12-03] MEDS ORDERED: Lactated Ringers 1000 ml BAG 1,000 ML IV ONE ×3 (06:58→17:16)
[2022-12-03] MEDS ORDERED: Ondansetron 4 mg VIAL 2 MG/ML 2 ml VIAL IV ONE (06:59)
[2022-12-03 07:17] LABS: Hematocrit 45 % (42-52); Hemoglobin 15.4 g/dL (14.0-18.0); Mean Corpuscular HGB Conc 34 g/dL (31-36); Mean Corpuscular Hemoglobin 33 pg (27-31); Mean Corpuscular Volume 97 fL (80-94); Mean Platelet Volume 7.1 fL (7.4-10.4); Platelet Count 368 10^3/uL (150-450); Red Cell Distribution Width 13 % (10-15); White Blood Count 24.8 10^3/uL (3.5-10.8)
[2022-12-03 07:23] LABS: INR 1.11 (0.88-1.18)
[2022-12-03] MEDS ORDERED: Piperacillin/Tazobac ADVAN 3.375 GM in NS 0.9% 100 ml BAG 100 ML IV ONE (07:31)
[2022-12-03 07:43] LABS: ALT 35 U/L (7-52); Albumin 4.4 g/dL (3.2-5.2); Albumin/Globulin Ratio 1.4 (1-3); Alkaline Phosphatase 135 U/L (35-149); Anion Gap 12 mmol/L (2-11); Blood Urea Nitrogen 33 mg/dL (6-24); C Reactive Protein 6.72 mg/L (<8.01); CO2 Carbon Dioxide 20 mmol/L (22-32); Calcium 9.5 mg/dL (8.6-10.3); Chloride 103 mmol/L (101-111); Creatinine, Serum 1.75 mg/dL (0.67-1.17); Globulin 3.2 g/dL (2-4); Glucose 194 mg/dL (70-100); Lipase 31 U/L (11.0-82.0); Sodium 135 mmol/L (135-145); Total Protein 7.6 g/dL (6.4-8.9); eGFR CKD-EPI 37.7 (>60)
[2022-12-03 07:58] LABS: ABS Basophils 0.1 10^3/ul (0-0.2); ABS Eosinophils 0.2 10^3/ul (0-0.6); ABS Lymphocytes 2.1 10^3/ul (1.0-4.8); ABS Monocytes 1.9 10^3/ul (0-0.8); ABS Neutrophils 20.6 10^3/ul (1.5-7.7); Eosinophil % 0.7 %; Lymphocyte % 8.6 %
[2022-12-03] MEDS ORDERED: Iodixanol (CONTRAST) 320 MG/ML 100 ML SDV IV ONE (07:59)
[2022-12-03] MEDS ORDERED: Vancomycin 1,500 MG in NS 0.9% 250 ml 250 ML IVPB ONE (08:00)
[2022-12-03 08:31] LABS: High Sens Troponin Baseline 7 pg/mL (<20)
[2022-12-03 08:53] LABS: Potassium Redraw 4.4 mmol/L (3.5-5.0)
[2022-12-03] MEDS ORDERED: Insulin GLARGINE 100 un/ml 10 ml VIAL SUBCUT SCH (09:00)
[2022-12-03 09:16] LABS: High Sensitivity Troponin 1 Hr 9 pg/mL (<20)
[2022-12-03] MEDS ORDERED: Senna TAB 8.6 mg TAB PO PRN (12:58)
[2022-12-03] MEDS ORDERED: Magnesium Hydroxide LIQ 30 ML UDC PO PRN (12:58)
[2022-12-03] MEDS ORDERED: Acetaminophen IV 1 GM/100ML 1,000 MG/100 ML BAG IV PRN (13:06)
[2022-12-03] MEDS ORDERED: oxyCODONE/Acetamin 5/325 mg TAB PO PRN (13:12)
[2022-12-03] MEDS ORDERED: Dextrose 50% Syringe 50 ml 25 GM/50 ML SYRINGE IV PUSH PRN (13:17)
[2022-12-03] MEDS ORDERED: Zosyn per Pharmacy NOTE FOLLOW UP SCH (14:00)
[2022-12-03] MEDS ORDERED: ZOSYN 3.375 GM x ONE DOSE over 30 miuntes IV (14:00)
[2022-12-03] MEDS: Lactated Ringers 1000 ml BAG 1,000 ML IV SCH (19:07)
[2022-12-03] MEDS: ZOSYN 3.375 GM Q8H per EXTENDED INFUSION IV SCH (20:12)
[2022-12-03] MEDS ORDERED: Enoxaparin 40 MG/0.4 ML SYR SUBCUT SCH (21:00)
[2022-12-04] MEDS: ZOSYN 3.375 GM Q8H per EXTENDED INFUSION IV SCH ×3 (03:21→20:32)
[2022-12-04] MEDS: Lactated Ringers 1000 ml BAG 1,000 ML IV SCH (05:37)
[2022-12-04] MEDS ORDERED: Lactated Ringers 1000 ml BAG 1,000 ML IV SCH ×2 (06:00→15:00)
[2022-12-04] MEDS ORDERED: Buffered Lidocaine 1% SYRIN 1 ml INTRADERM ONE (06:00)
[2022-12-04 07:09] LABS: Hematocrit 38 % (42-52); Hemoglobin 12.5 g/dL (14.0-18.0); Mean Corpuscular HGB Conc 33 g/dL (31-36); Mean Corpuscular Hemoglobin 32 pg (27-31); Mean Corpuscular Volume 96 fL (80-94); Mean Platelet Volume 6.9 fL (7.4-10.4); Platelet Count 278 10^3/uL (150-450); Red Blood Count 3.92 10^6 /uL (4.18-5.48); Red Cell Distribution Width 13 % (10-15); White Blood Count 25.7 10^3/uL (3.5-10.8)
[2022-12-04 07:12] LABS: ABS Lymphocytes 1.2 10^3/ul (1.0-4.8); ABS Monocytes 1.3 10^3/ul (0-0.8); ABS Neutrophils 23.2 10^3/ul (1.5-7.7); Lymphocyte % 4.5 %
[2022-12-04 07:30] LABS: Calcium 8.3 mg/dL (8.6-10.3); Creatinine, Serum 1.62 mg/dL (0.67-1.17); eGFR CKD-EPI 41.3 (>60)
[2022-12-04] MEDS ORDERED: Piperacillin/Tazobac 3.375 GM BAG ONE (11:20)
[2022-12-04] MEDS ORDERED: Propofol 10 MG/ML 20 ML BTL ONE (11:52)
[2022-12-04] MEDS ORDERED: fentaNYL 100 mcg/2 ml 50 MCG/ML VIAL ONE (11:52)
[2022-12-04] MEDS ORDERED: Lidocaine 2% PF 5 ML VIAL ONE (11:53)
[2022-12-04] MEDS ORDERED: Rocuronium 50 mg VIAL 10 mg/ml 5 ml VIAL (50 mg) ONE ×2 (11:54→13:45)
[2022-12-04] MEDS ORDERED: Ondansetron 4 mg VIAL 2 MG/ML 2 ml VIAL ONE ×2 (11:57→12:54)
[2022-12-04] MEDS ORDERED: Dexamethasone IV 4 MG/ML VIAL 1 ml VIAL ONE ×2 (11:57→12:54)
[2022-12-04] MEDS ORDERED: Bupivacaine 0.5% 50 ML MDV VIAL ONE (11:59)
[2022-12-04] MEDS ORDERED: Acetaminophen IV 1 GM/100ML 1,000 MG/100 ML BAG IV ONE (12:54)
[2022-12-04] MEDS ORDERED: fentaNYL 100 mcg/2 ml 50 MCG/ML VIAL IV PRN (14:05)
[2022-12-04] MEDS ORDERED: Naloxone 0.4 mg VIAL 0.4 mg/ml 1 ml VIAL IV PRN (14:05)
[2022-12-05 03:25] LABS: Urine Appearance Cloudy; Urine Bilirubin Negative (Negative); Urine Blood 1+ (Negative); Urine Color Yellow; Urine Glucose 3+(>=500 mg/dL) (Negative); Urine Ketones Trace (Negative); Urine Nitrite Negative (Negative); Urine Protein 1+(30 mg/dL) (Negative); Urine Specific Gravity 1.032 (1.002-1.030); Urine Urobilinogen Negative (Negative)
[2022-12-05] MEDS: ZOSYN 3.375 GM Q8H per EXTENDED INFUSION IV SCH ×2 (03:26→11:23)
[2022-12-05 03:32] LABS: Urine Bacteria Absent (Absent); Urine Red Blood Cell 1+(3-5/hpf) (Absent); Urine Squamous Epithelial Cell Present (Absent); Urine White Blood Cell Absent (Absent)
[2022-12-05 05:55] LABS: Hematocrit 37 % (42-52); Hemoglobin 12.2 g/dL (14.0-18.0); Mean Corpuscular HGB Conc 33 g/dL (31-36); Mean Corpuscular Hemoglobin 32 pg (27-31); Mean Corpuscular Volume 97 fL (80-94); Mean Platelet Volume 7.2 fL (7.4-10.4); Platelet Count 227 10^3/uL (150-450); Red Blood Count 3.85 10^6 /uL (4.18-5.48); Red Cell Distribution Width 13 % (10-15); White Blood Count 25.8 10^3/uL (3.5-10.8)
[2022-12-05 05:57] LABS: ABS Eosinophils 0.1 10^3/ul (0-0.6); ABS Lymphocytes 1.1 10^3/ul (1.0-4.8); ABS Monocytes 0.8 10^3/ul (0-0.8); ABS Neutrophils 23.7 10^3/ul (1.5-7.7); Eosinophil % 0.5 %; Lymphocyte % 4.4 %
[2022-12-05 06:14] LABS: Albumin 2.9 g/dL (3.2-5.2); Potassium 4.7 mmol/L (3.5-5.0); Total Bilirubin 0.6 mg/dL (0.2-1.0)
[2022-12-05 06:20] LABS: Albumin/Globulin Ratio 1.3 (1-3); Creatinine, Serum 1.94 mg/dL (0.67-1.17); Globulin 2.2 g/dL (2-4); Total Protein 5.1 g/dL (6.4-8.9); eGFR CKD-EPI 33.3 (>60)
[2022-12-05] MEDS ORDERED: Lactated Ringers 1000 ml BAG 1,000 ML IV SCH (06:55)
[2022-12-05] MEDS ORDERED: Insulin GLARGINE 100 un/ml 10 ml VIAL SUBCUT SCH (09:00)
[2022-12-05 12:37] VITALS: BP 115/70
[2022-12-05 14:40] LABS: Calcium 7.9 mg/dL (8.6-10.3); Potassium 4.4 mmol/L (3.5-5.0)
[2022-12-05 14:46] LABS: Creatinine, Serum 1.8 mg/dL (0.67-1.17); eGFR CKD-EPI 36.4 (>60)
== END 2022-12-05 15:10 | disposition home or self-care (01) | DRG 417 ==
LOC: ED 06:42 → SUATTDRO 12:58 → EDHOLD 12:58 → MEDTELE 16:12 → SSU 12-04 17:18
PROVIDERS: ADMIT Hospitalist; ATTEND Internal Medicine

== ENCOUNTER 2023-03-01 10:11 | Inpatient (IN) ==
[2023-03-01] MEDS ORDERED: Lactated Ringers 1000 ml BAG 1,000 ML IV ONE ×2 (10:39→14:20)
[2023-03-01] MEDS ORDERED: Ondansetron 4 mg VIAL 2 MG/ML 2 ml VIAL IV ONE (10:39)
[2023-03-01] MEDS ORDERED: Morphine 4 MG/ML VIAL (1 ml) IV ONE (10:39)
[2023-03-01 11:00] LABS: ABS Basophils 0.1 10^3/uL (0.0-0.1); ABS Eosinophils 0.1 10^3/uL (0.0-0.5); ABS Lymphocytes 1.8 10^3/uL (1.0-4.8); ABS Monocytes 1.2 10^3/uL (0.0-1.1); ABS Neutrophils 13.5 10^3/uL (1.5-7.6); ABS Nucleated RBC 0.01 10^3/ul; Eosinophil % 0.5 %; Hematocrit 41.5 % (38-53); Hemoglobin 14.1 g/dL (13.2-16.3); Lymphocyte % 10.7 %; Mean Corpuscular Hemoglobin 31.8 pg (27-33); Mean Corpuscular Volume 93.8 fL (80-97); Mean Platelet Volume 6.8 fL (7.5-11.2); Platelet Count 324 10^3/uL (150-450); Red Blood Count 4.42 10^6/uL (4.06-5.63); Red Cell Distribution Width 13.7 % (12-17); White Blood Count 16.7 10^3/uL (3.6-10.2)
[2023-03-01 11:06] LABS: INR 1.37 (0.88-1.18)
[2023-03-01 11:21] LABS: High Sens Troponin Baseline 8 pg/mL (<20)
[2023-03-01 12:03] LABS: ALT 94 U/L (7-52); AST 48 U/L (13-39); Albumin/Globulin Ratio 1.7 (1-3); Alkaline Phosphatase 118 U/L (35-149); Anion Gap 9 mmol/L (2-16); Blood Urea Nitrogen 31 mg/dL (6-24); CO2 Carbon Dioxide 25 mmol/L (22-32); Chloride 104 mmol/L (101-111); Creatinine, Serum 1.82 mg/dL (0.67-1.17); Globulin 2.4 g/dL (2-4); Glucose 138 mg/dL (70-100); Sodium 138 mmol/L (135-145); Total Protein 6.4 g/dL (6.4-8.9)
[2023-03-01] MEDS ORDERED: Acetaminophen IV 1 GM/100ML 1,000 MG/100 ML BAG IV ONE (12:28)
[2023-03-01 12:46] LABS: High Sensitivity Troponin 1 Hr 8 pg/mL (<20)
[2023-03-01 13:28] LABS: C Reactive Protein < 1.00 mg/L (<8.01)
[2023-03-01] MEDS ORDERED: Lactated Ringers 1000 ml BAG 1,000 ML IV SCH (15:00)
[2023-03-01 16:09] LABS: Urine Appearance Clear; Urine Bilirubin Negative (Negative); Urine Blood Negative (Negative); Urine Color Yellow; Urine Glucose 2+(150 mg/dL) (Negative); Urine Ketones Negative (Negative); Urine Nitrite Negative (Negative); Urine Protein 1+(30 mg/dL) (Negative); Urine Urobilinogen Negative (Negative)
[2023-03-01 16:10] LABS: Urine Bacteria Absent (Absent); Urine Red Blood Cell Trace(0-2/hpf) (Absent); Urine Squamous Epithelial Cell Present (Absent); Urine White Blood Cell Trace(0-5/hpf) (Absent)
[2023-03-01] MEDS ORDERED: HYDROmorphone 1 MG/1 ML SYRINGE IV SLOW PU PRN (16:29)
[2023-03-01 16:36] LABS: Magnesium 1.7 mg/dL (1.9-2.7)
[2023-03-01] MEDS ORDERED: Magnesium Sulfate IV 3 GM in NS 0.9% 100 ml BAG 100 ML IVPB ONE (16:59)
[2023-03-01] MEDS: Enoxaparin 40 MG/0.4 ML SYR SUBCUT SCH (20:13)
[2023-03-01] MEDS: Insulin GLARGINE 100 un/ml 10 ml VIAL SUBCUT SCH (20:13)
[2023-03-01] MEDS: HYDROmorphone 0.5 MG/0.5 ML SYRINGE IV SLOW PU PRN (20:20)
[2023-03-02] MEDS: HYDROmorphone 0.5 MG/0.5 ML SYRINGE IV SLOW PU PRN ×3 (04:53→22:59)
[2023-03-02 05:06] LABS: ABS Basophils 0.2 10^3/uL (0.0-0.1); ABS Eosinophils 0.6 10^3/uL (0.0-0.5); ABS Monocytes 1.1 10^3/uL (0.0-1.1); ABS Neutrophils 10.1 10^3/uL (1.5-7.6); Eosinophil % 3.7 %; Hematocrit 36.1 % (38-53); Hemoglobin 12.5 g/dL (13.2-16.3); Lymphocyte % 20.2 %; Mean Corpuscular Hemoglobin 32.7 pg (27-33); Mean Corpuscular Hgb Conc 34.7 g/dL (31-36); Mean Corpuscular Volume 94.5 fL (80-97); Mean Platelet Volume 6.5 fL (7.5-11.2); Platelet Count 277 10^3/uL (150-450); Red Blood Count 3.82 10^6/uL (4.06-5.63); Red Cell Distribution Width 13.7 % (12-17); White Blood Count 14.9 10^3/uL (3.6-10.2)
[2023-03-02 05:59] LABS: Albumin 3.4 g/dL (3.2-5.2); Albumin/Globulin Ratio 1.4 (1-3); Calcium 8.5 mg/dL (8.6-10.3); Creatinine, Serum 1.75 mg/dL (0.67-1.17); Globulin 2.4 g/dL (2-4); Magnesium 2.2 mg/dL (1.9-2.7); Potassium 3.8 mmol/L (3.5-5.0); Total Bilirubin 1.1 mg/dL (0.2-1.0); Total Protein 5.8 g/dL (6.4-8.9); eGFR CKD-EPI 37.7 (>60)
[2023-03-02] MEDS: Dextrose 50% Syringe 50 ml 25 GM/50 ML SYRINGE IV PUSH PRN ×2 (06:28→17:29)
[2023-03-02] MEDS ORDERED: Sulfur Hexaflouride MICROSPHR 25 MG VIAL ONE (07:53)
[2023-03-02] MEDS: Insulin GLARGINE 100 un/ml 10 ml VIAL SUBCUT SCH (08:13)
[2023-03-02] MEDS: Enoxaparin 40 MG/0.4 ML SYR SUBCUT SCH (19:58)
[2023-03-02] MEDS: oxyCODONE/Acetamin 5/325 mg TAB PO PRN (22:59)
[2023-03-03 07:08] LABS: Hematocrit 38.3 % (38-53); Hemoglobin 13.1 g/dL (13.2-16.3); Mean Corpuscular Hemoglobin 32.6 pg (27-33); Mean Corpuscular Hgb Conc 34.1 g/dL (31-36); Mean Corpuscular Volume 95.6 fL (80-97); Mean Platelet Volume 6.8 fL (7.5-11.2); Platelet Count 251 10^3/uL (150-450); Red Blood Count 4.01 10^6/uL (4.06-5.63); Red Cell Distribution Width 13.5 % (12-17); White Blood Count 14.3 10^3/uL (3.6-10.2)
[2023-03-03 07:34] LABS: Calcium 8.6 mg/dL (8.6-10.3); Creatinine, Serum 1.42 mg/dL (0.67-1.17); Potassium 4.4 mmol/L (3.5-5.0); eGFR CKD-EPI 48.4 (>60)
[2023-03-03] MEDS: HYDROmorphone 0.5 MG/0.5 ML SYRINGE IV SLOW PU PRN (08:04)
[2023-03-03] MEDS: Insulin GLARGINE 100 un/ml 10 ml VIAL SUBCUT SCH (09:35)
[2023-03-03] MEDS ORDERED: Phenylephrine IV 10 MG/ML 1 ml VIAL ONE (10:25)
[2023-03-03] MEDS ORDERED: Rocuronium 50 mg VIAL 10 mg/ml 5 ml VIAL (50 mg) ONE ×2 (10:25→13:32)
[2023-03-03] MEDS ORDERED: Propofol 10 MG/ML 20 ML BTL ONE (10:25)
[2023-03-03] MEDS ORDERED: fentaNYL 250 mcg/5 ml 50 MCG/ML 5 ml VIAL (250 MCG) ONE (10:25)
[2023-03-03] MEDS ORDERED: Bupivacaine 0.5% SDV PF 30ML VIAL ONE (10:25)
[2023-03-03] MEDS ORDERED: Ondansetron 4 mg VIAL 2 MG/ML 2 ml VIAL ONE (10:25)
[2023-03-03] MEDS ORDERED: Lidocaine 2% PF 5 ML VIAL ONE (10:25)
[2023-03-03] MEDS ORDERED: Phenylephrine 40 mcg/mL 10mL (400mcg) SYRINGE ONE (10:25)
[2023-03-03] MEDS ORDERED: Acetaminophen IV 1 GM/100ML 1,000 MG/100 ML BAG IV ONE (13:18)
[2023-03-03] MEDS ORDERED: Naloxone 0.4 mg VIAL 0.4 mg/ml 1 ml VIAL IV PRN (14:47)
[2023-03-03] MEDS ORDERED: fentaNYL 100 mcg/2 ml 50 MCG/ML VIAL ONE (14:48)
[2023-03-03] MEDS: fentaNYL 100 mcg/2 ml 50 MCG/ML VIAL IV PRN ×2 (14:50→14:52)
[2023-03-03 15:31] LABS: Hematocrit 37.1 % (38-53); Hemoglobin 12.7 g/dL (13.2-16.3)
[2023-03-03] MEDS ORDERED: Ondansetron 4 mg VIAL 2 MG/ML 2 ml VIAL IV PRN (17:00)
[2023-03-03] MEDS: ceFAZolin 1 GM Q8H (ADVAN) IVPB SCH (21:08)
[2023-03-03] MEDS: oxyCODONE/Acetamin 5/325 mg TAB PO PRN (21:15)
[2023-03-04] MEDS: HYDROmorphone 0.5 MG/0.5 ML SYRINGE IV SLOW PU PRN (01:19)
[2023-03-04] MEDS: ceFAZolin 1 GM Q8H (ADVAN) IVPB SCH ×3 (05:43→20:54)
[2023-03-04 06:11] LABS: Hematocrit 34.4 % (38-53); Hemoglobin 11.8 g/dL (13.2-16.3); Mean Corpuscular Hemoglobin 32.2 pg (27-33); Mean Corpuscular Hgb Conc 34.3 g/dL (31-36); Mean Corpuscular Volume 94.1 fL (80-97); Mean Platelet Volume 7.2 fL (7.5-11.2); Platelet Count 269 10^3/uL (150-450); Red Blood Count 3.66 10^6/uL (4.06-5.63); Red Cell Distribution Width 13.5 % (12-17); White Blood Count 16.8 10^3/uL (3.6-10.2)
[2023-03-04 06:30] LABS: Calcium 8.5 mg/dL (8.6-10.3); Creatinine, Serum 1.67 mg/dL (0.67-1.17); Potassium 5.1 mmol/L (3.5-5.0); eGFR CKD-EPI 39.9 (>60)
[2023-03-04] MEDS: oxyCODONE/Acetamin 5/325 mg TAB PO PRN ×2 (09:13→14:38)
[2023-03-04] MEDS: Insulin GLARGINE 100 un/ml 10 ml VIAL SUBCUT SCH ×2 (09:50→17:53)
[2023-03-05] MEDS: ceFAZolin 1 GM Q8H (ADVAN) IVPB SCH (05:34)
[2023-03-05 06:17] LABS: Calcium 8.3 mg/dL (8.6-10.3); Magnesium 1.9 mg/dL (1.9-2.7); Potassium 4.6 mmol/L (3.5-5.0)
[2023-03-05 06:23] LABS: Creatinine, Serum 1.79 mg/dL (0.67-1.17); eGFR CKD-EPI 36.7 (>60)
[2023-03-05 06:57] LABS: Hematocrit 29.8 % (38-53); Hemoglobin 10.4 g/dL (13.2-16.3); Mean Corpuscular Hemoglobin 33.2 pg (27-33); Mean Corpuscular Hgb Conc 34.9 g/dL (31-36); Platelet Count 264 10^3/uL (150-450); Red Blood Count 3.14 10^6/uL (4.06-5.63); Red Cell Distribution Width 13.2 % (12-17); White Blood Count 15.1 10^3/uL (3.6-10.2)
[2023-03-05] MEDS ORDERED: Dextrose 50% Syringe 50 ml 25 GM/50 ML SYRINGE IV PUSH PRN (07:49)
[2023-03-05] MEDS: oxyCODONE/Acetamin 5/325 mg TAB PO PRN ×2 (08:47→23:56)
[2023-03-05 08:54] LABS: ABS Basophils 0.1 10^3/uL (0.0-0.1); ABS Eosinophils 1.1 10^3/uL (0.0-0.5); ABS Lymphocytes 1.8 10^3/uL (1.0-4.8); ABS Neutrophils 10.1 10^3/uL (1.5-7.6); ABS Nucleated RBC 0.01 10^3/ul; Eosinophil % 7.1 %; Lymphocyte % 12.1 %; Nucleated Red Blood Cells % 0.1 /100 WBC (0.0-0.4)
[2023-03-05] MEDS ORDERED: NS 0.9% 1000 ml BAG 1,000 ML IV ONE (09:31)
[2023-03-05] MEDS: Insulin GLARGINE 100 un/ml 10 ml VIAL SUBCUT SCH ×2 (18:02→19:50)
[2023-03-05] MEDS ORDERED: Polyethylene Glycol 3350 17 GM PACKET PO PRN (22:25)
[2023-03-05] MEDS ORDERED: Magnesium Hydroxide LIQ 30 ML UDC PO PRN (22:25)
[2023-03-06 07:00] LABS: Calcium 8.2 mg/dL (8.6-10.3); Creatinine, Serum 1.49 mg/dL (0.67-1.17); Magnesium 1.9 mg/dL (1.9-2.7); Potassium 4.3 mmol/L (3.5-5.0); eGFR CKD-EPI 45.7 (>60)
[2023-03-06] MEDS: oxyCODONE/Acetamin 5/325 mg TAB PO PRN (09:03)
[2023-03-06] MEDS: Insulin GLARGINE 100 un/ml 10 ml VIAL SUBCUT SCH (17:41)
[2023-03-07 06:18] LABS: Calcium 8.6 mg/dL (8.6-10.3); Creatinine, Serum 1.59 mg/dL (0.67-1.17); Magnesium 2.1 mg/dL (1.9-2.7); Potassium 4.5 mmol/L (3.5-5.0); eGFR CKD-EPI 42.3 (>60)
[2023-03-07 13:07] LABS: Urine Appearance Clear; Urine Bilirubin Negative (Negative); Urine Blood Negative (Negative); Urine Color Yellow; Urine Glucose 3+(>=500 mg/dL) (Negative); Urine Ketones Negative (Negative); Urine Nitrite Negative (Negative); Urine Protein 1+(30 mg/dL) (Negative); Urine Urobilinogen Negative (Negative)
[2023-03-07 13:35] LABS: Urine Bacteria Absent (Absent); Urine Red Blood Cell Trace(0-2/hpf) (Absent); Urine White Blood Cell Trace(0-5/hpf) (Absent)
[2023-03-07] MEDS ORDERED: Insulin GLARGINE 100 un/ml 10 ml VIAL SUBCUT SCH (16:00)
[2023-03-08 06:13] LABS: Hematocrit 30.4 % (38-53); Hemoglobin 10.4 g/dL (13.2-16.3); Mean Corpuscular Hemoglobin 32.5 pg (27-33); Mean Corpuscular Hgb Conc 34.3 g/dL (31-36); Mean Corpuscular Volume 94.9 fL (80-97); Mean Platelet Volume 6.7 fL (7.5-11.2); Platelet Count 394 10^3/uL (150-450); Red Blood Count 3.21 10^6/uL (4.06-5.63); Red Cell Distribution Width 13.3 % (12-17); White Blood Count 12.4 10^3/uL (3.6-10.2)
[2023-03-08 06:30] LABS: Albumin 3.2 g/dL (3.2-5.2); Calcium 8.7 mg/dL (8.6-10.3); Magnesium 2.1 mg/dL (1.9-2.7); Potassium 4.1 mmol/L (3.5-5.0)
[2023-03-08 06:36] LABS: Albumin/Globulin Ratio 1.2 (1-3); Creatinine, Serum 1.51 mg/dL (0.67-1.17); Globulin 2.6 g/dL (2-4); Total Protein 5.8 g/dL (6.4-8.9)
[2023-03-08 15:09] VITALS: BP 122/50
== END 2023-03-08 16:57 | DRG 522 ==
LOC: EDHOLD 10:11 → ED 10:11 → SUATTDRO 13:08 → ICU 22:05 → SSU 03-03 17:02 → MEDTELE 03-05 21:18 → PMRU 03-08 16:13
PROVIDERS: ADMIT Internal Medicine; ATTEND Internal Medicine

== ENCOUNTER 2023-03-08 10:42 | Inpatient (IN) ==
[2023-03-08] MEDS ORDERED: Senna TAB 8.6 mg TAB PO PRN (16:56)
[2023-03-08] MEDS ORDERED: Dextrose 50% Syringe 50 ml 25 GM/50 ML SYRINGE IV PUSH PRN (17:02)
[2023-03-08] MEDS ORDERED: Magnesium Hydroxide LIQ 30 ML UDC PO PRN (17:04)
[2023-03-08] MEDS: Insulin GLARGINE 100 un/ml 10 ml VIAL SUBCUT SCH (19:00)
[2023-03-09] MEDS: Nicotine GUM 2MG FRUIT FLAVOR PO PRN (18:28)
[2023-03-09] MEDS: Insulin GLARGINE 100 un/ml 10 ml VIAL SUBCUT SCH (18:28)
[2023-03-10 06:32] LABS: ABS Basophils 0.2 10^3/uL (0.0-0.1); ABS Eosinophils 1.3 10^3/uL (0.0-0.5); ABS Lymphocytes 1.9 10^3/uL (1.0-4.8); ABS Monocytes 1.5 10^3/uL (0.0-1.1); ABS Neutrophils 7.4 10^3/uL (1.5-7.6); ABS Nucleated RBC 0.01 10^3/ul; Eosinophil % 10.2 %; Hematocrit 28.2 % (38-53); Hemoglobin 9.8 g/dL (13.2-16.3); Lymphocyte % 15.9 %; Mean Corpuscular Hemoglobin 33.1 pg (27-33); Mean Corpuscular Hgb Conc 34.9 g/dL (31-36); Mean Corpuscular Volume 94.8 fL (80-97); Mean Platelet Volume 6.1 fL (7.5-11.2); Nucleated Red Blood Cells % 0.1 /100 WBC (0.0-0.4); Platelet Count 475 10^3/uL (150-450); Red Blood Count 2.97 10^6/uL (4.06-5.63); Red Cell Distribution Width 12.9 % (12-17); White Blood Count 12.3 10^3/uL (3.6-10.2)
[2023-03-10 06:56] LABS: Albumin 3.1 g/dL (3.2-5.2); Albumin/Globulin Ratio 1.3 (1-3); Calcium 8.6 mg/dL (8.6-10.3); Creatinine, Serum 1.62 mg/dL (0.67-1.17); Globulin 2.4 g/dL (2-4); Potassium 4.5 mmol/L (3.5-5.0); Total Bilirubin 1.2 mg/dL (0.2-1.0); Total Protein 5.5 g/dL (6.4-8.9); eGFR CKD-EPI 41.3 (>60)
[2023-03-10] MEDS: Insulin GLARGINE 100 un/ml 10 ml VIAL SUBCUT SCH (18:35)
[2023-03-11] MEDS: Insulin GLARGINE 100 un/ml 10 ml VIAL SUBCUT SCH (18:47)
[2023-03-12] MEDS: Nicotine GUM 2MG FRUIT FLAVOR PO PRN (14:48)
[2023-03-12] MEDS: Nicotine PATCH 14 MG/24 HR PATCH TRANSDERM SCH (14:48)
[2023-03-12] MEDS: Insulin GLARGINE 100 un/ml 10 ml VIAL SUBCUT SCH (17:46)
[2023-03-13] MEDS: Nicotine PATCH 14 MG/24 HR PATCH TRANSDERM SCH (08:08)
[2023-03-13] MEDS: Insulin GLARGINE 100 un/ml 10 ml VIAL SUBCUT SCH (17:32)
[2023-03-14] MEDS: Nicotine PATCH 14 MG/24 HR PATCH TRANSDERM SCH (08:05)
[2023-03-14] MEDS: Insulin GLARGINE 100 un/ml 10 ml VIAL SUBCUT SCH (18:09)
[2023-03-15] MEDS: Nicotine PATCH 14 MG/24 HR PATCH TRANSDERM SCH (10:02)
[2023-03-15] MEDS: Insulin GLARGINE 100 un/ml 10 ml VIAL SUBCUT SCH (18:36)
[2023-03-16] MEDS: Nicotine PATCH 14 MG/24 HR PATCH TRANSDERM SCH (08:36)
[2023-03-16] MEDS: Insulin GLARGINE 100 un/ml 10 ml VIAL SUBCUT SCH (19:27)
[2023-03-17 06:45] LABS: ABS Basophils 0.1 10^3/uL (0.0-0.1); ABS Eosinophils 1.2 10^3/uL (0.0-0.5); ABS Lymphocytes 2.1 10^3/uL (1.0-4.8); ABS Monocytes 1.1 10^3/uL (0.0-1.1); ABS Neutrophils 5.3 10^3/uL (1.5-7.6); Eosinophil % 12.7 %; Hematocrit 27.2 % (38-53); Hemoglobin 9.8 g/dL (13.2-16.3); Lymphocyte % 21.2 %; Mean Corpuscular Hemoglobin 33.7 pg (27-33); Mean Corpuscular Volume 93.7 fL (80-97); Mean Platelet Volume 6.1 fL (7.5-11.2); Platelet Count 735 10^3/uL (150-450); Red Cell Distribution Width 13.2 % (12-17); White Blood Count 9.8 10^3/uL (3.6-10.2)
[2023-03-17 07:05] LABS: Albumin 3.3 g/dL (3.2-5.2); Calcium 8.9 mg/dL (8.6-10.3); Creatinine, Serum 1.64 mg/dL (0.67-1.17); Potassium 4.2 mmol/L (3.5-5.0); Total Protein 6.3 g/dL (6.4-8.9); eGFR CKD-EPI 40.7 (>60)
[2023-03-17 07:06] LABS: Albumin/Globulin Ratio 1.1 (1-3); Total Bilirubin 0.5 mg/dL (0.2-1.0)
[2023-03-17] MEDS: Nicotine PATCH 14 MG/24 HR PATCH TRANSDERM SCH (09:34)
[2023-03-17] MEDS: Insulin GLARGINE 100 un/ml 10 ml VIAL SUBCUT SCH (17:46)
[2023-03-18] MEDS: Nicotine PATCH 14 MG/24 HR PATCH TRANSDERM SCH (12:35)
[2023-03-18] MEDS: Insulin GLARGINE 100 un/ml 10 ml VIAL SUBCUT SCH (17:35)
[2023-03-19] MEDS: Nicotine PATCH 14 MG/24 HR PATCH TRANSDERM SCH (07:53)
[2023-03-19 10:06] VITALS: BP 133/70
== END 2023-03-19 12:20 | disposition home or self-care (01) | DRG 560 ==
LOC: PMRU 16:58
PROVIDERS: ADMIT Physical Medicine & Rehabilitation; ATTEND Physical Medicine & Rehabilitation

== ENCOUNTER 2023-09-30 08:13 | Inpatient (IN) ==
[2023-09-30] MEDS ORDERED: NS 0.9% 1000 ml BAG 1,000 ML IV ONE ×2 (08:46→10:42)
[2023-09-30 09:05] LABS: INR 1.19 (0.83-1.13)
[2023-09-30 09:25] LABS: ABS Basophils 0.1 10^3/uL (0.0-0.1); ABS Eosinophils 0.2 10^3/uL (0.0-0.5); ABS Lymphocytes 3.2 10^3/uL (1.0-4.8); ABS Monocytes 0.8 10^3/uL (0.0-1.1); ABS Neutrophils 4.9 10^3/uL (1.5-7.6); Eosinophil % 2.6 %; Hematocrit 37.5 % (38-53); Mean Corpuscular Hemoglobin 32.6 pg (27-33); Mean Corpuscular Hgb Conc 34.6 g/dL (31-36); Mean Corpuscular Volume 94.4 fL (80-97); Mean Platelet Volume 6.8 fL (7.5-11.2); Platelet Count 402 10^3/uL (150-450); Red Blood Count 3.97 10^6/uL (4.06-5.63); White Blood Count 9.2 10^3/uL (3.6-10.2)
[2023-09-30 09:43] LABS: High Sens Troponin Baseline 8 pg/mL (<20)
[2023-09-30 09:53] LABS: ALT 13 U/L (7-52); Albumin 4.2 g/dL (3.2-5.2); Albumin/Globulin Ratio 1.6 (1-3); Alkaline Phosphatase 110 U/L (35-149); Anion Gap 12 mmol/L (2-16); Blood Urea Nitrogen 27 mg/dL (6-24); CO2 Carbon Dioxide 24 mmol/L (22-32); Calcium 9.3 mg/dL (8.6-10.3); Chloride 100 mmol/L (101-111); Creatinine, Serum 1.75 mg/dL (0.67-1.17); Globulin 2.7 g/dL (2-4); Glucose 164 mg/dL (70-100); Magnesium 1.9 mg/dL (1.9-2.7); Sodium 136 mmol/L (135-145); TSH Ultra Thyroid Stim Horm 4.53 mcIU/mL (0.34-5.60); Total Bilirubin 0.8 mg/dL (0.2-1.0); Total Protein 6.9 g/dL (6.4-8.9); eGFR CKD-EPI 37.7 (>60)
[2023-09-30 10:49] LABS: Potassium Redraw 3.8 mmol/L (3.5-5.0)
[2023-09-30 10:51] LABS: High Sensitivity Troponin 1 Hr 9 pg/mL (<20)
[2023-09-30] MEDS ORDERED: Tetan/Diph/Pertus SYR(Tdap) 0.5 ML SYR(BOOSTRIX) use SYR contains LATEX IM ONE (11:42)
[2023-09-30] MEDS ORDERED: Dextrose 50% Syringe 50 ml 25 GM/50 ML SYRINGE IV PUSH PRN (13:37)
[2023-10-01 06:58] LABS: ABS Basophils 0.3 10^3/uL (0.0-0.1); ABS Eosinophils 0.2 10^3/uL (0.0-0.5); ABS Lymphocytes 2.3 10^3/uL (1.0-4.8); ABS Monocytes 1.3 10^3/uL (0.0-1.1); ABS Neutrophils 5.7 10^3/uL (1.5-7.6); Eosinophil % 2.4 %; Hematocrit 34.2 % (38-53); Hemoglobin 11.9 g/dL (13.2-16.3); Lymphocyte % 23.3 %; Mean Corpuscular Hemoglobin 32.7 pg (27-33); Mean Corpuscular Hgb Conc 34.7 g/dL (31-36); Mean Corpuscular Volume 94.1 fL (80-97); Mean Platelet Volume 6.5 fL (7.5-11.2); Platelet Count 358 10^3/uL (150-450); Red Blood Count 3.63 10^6/uL (4.06-5.63); Red Cell Distribution Width 12.9 % (12-17); White Blood Count 9.8 10^3/uL (3.6-10.2)
[2023-10-01 07:22] LABS: Calcium 8.9 mg/dL (8.6-10.3); Creatinine, Serum 1.53 mg/dL (0.67-1.17); Magnesium 1.8 mg/dL (1.9-2.7); Potassium 3.4 mmol/L (3.5-5.0); eGFR CKD-EPI 44.3 (>60)
[2023-10-01] MEDS: Insulin GLARGINE 100 un/ml 10 ml VIAL SUBCUT SCH (08:04)
[2023-10-01 13:35] LABS: Urine Appearance Cloudy; Urine Bilirubin Negative (Negative); Urine Blood Negative (Negative); Urine Color Yellow; Urine Glucose 2+(150 mg/dL) (Negative); Urine Ketones Negative (Negative); Urine Nitrite Negative (Negative); Urine Protein 2+(100 mg/dL) (Negative); Urine Specific Gravity 1.026 (1.002-1.030); Urine Urobilinogen Negative (Negative)
[2023-10-01 13:44] LABS: Urine Bacteria 1+ (Absent); Urine Red Blood Cell Trace(0-2/hpf) (Absent); Urine Squamous Epithelial Cell Present (Absent); Urine White Blood Cell 3+(>20/hpf) (Absent)
[2023-10-01] MEDS ORDERED: NS 0.9% 500 ml BAG 500 ML IV ONE (15:07)
[2023-10-01] MEDS ORDERED: Potassium Chlor 20 meq TAB.ER PO ONE (15:50)
[2023-10-02 06:54] LABS: Hematocrit 34.5 % (38-53); Hemoglobin 11.7 g/dL (13.2-16.3); Mean Corpuscular Hgb Conc 33.8 g/dL (31-36); Mean Corpuscular Volume 94.4 fL (80-97); Mean Platelet Volume 6.7 fL (7.5-11.2); Platelet Count 333 10^3/uL (150-450); Red Blood Count 3.65 10^6/uL (4.06-5.63); White Blood Count 14.7 10^3/uL (3.6-10.2)
[2023-10-02 07:09] LABS: Calcium 8.6 mg/dL (8.6-10.3); Creatinine, Serum 1.58 mg/dL (0.67-1.17); Magnesium 1.6 mg/dL (1.9-2.7); Potassium 3.5 mmol/L (3.5-5.0); eGFR CKD-EPI 42.6 (>60)
[2023-10-02 07:56] LABS: ABS Monocytes 2.3 10^3/uL (0.0-1.1); ABS Neutrophils 11.4 10^3/uL (1.5-7.6); ABS Nucleated RBC 0.01 10^3/ul
[2023-10-02] MEDS: Insulin GLARGINE 100 un/ml 10 ml VIAL SUBCUT SCH (08:38)
[2023-10-02] MEDS: cefTRIAXone 1 gm/50 mL D5W 1 GM/50 ML BAG IV SCH (11:35)
[2023-10-02 16:32] LABS: C Reactive Protein 2.06 mg/L (<8.01)
[2023-10-03] MEDS ORDERED: Magnesium Sulfate 2 gm BAG 2 GM/50 ML BAG IVPB ONE (06:51)
[2023-10-03 06:55] LABS: Hematocrit 33.8 % (38-53); Hemoglobin 11.6 g/dL (13.2-16.3); Mean Corpuscular Hemoglobin 32.6 pg (27-33); Mean Corpuscular Hgb Conc 34.3 g/dL (31-36); Mean Platelet Volume 6.8 fL (7.5-11.2); Platelet Count 334 10^3/uL (150-450); Red Blood Count 3.56 10^6/uL (4.06-5.63)
[2023-10-03 07:16] LABS: C Reactive Protein 202.47 mg/L (<8.01); Calcium 8.9 mg/dL (8.6-10.3); Creatinine, Serum 1.54 mg/dL (0.67-1.17); Magnesium 1.8 mg/dL (1.9-2.7); Potassium 3.7 mmol/L (3.5-5.0); eGFR CKD-EPI 43.9 (>60)
[2023-10-03] MEDS: Insulin GLARGINE 100 un/ml 10 ml VIAL SUBCUT SCH (07:50)
[2023-10-03 08:00] LABS: ABS Basophils 0.1 10^3/uL (0.0-0.1); ABS Eosinophils 0.1 10^3/uL (0.0-0.5); ABS Lymphocytes 2.7 10^3/uL (1.0-4.8); ABS Monocytes 1.8 10^3/uL (0.0-1.1); ABS Neutrophils 7.3 10^3/uL (1.5-7.6); Eosinophil % 1.1 %; Lymphocyte % 22.2 %
[2023-10-03] MEDS: cefTRIAXone 1 gm/50 mL D5W 1 GM/50 ML BAG IV SCH (09:27)
[2023-10-03 14:27] LABS: Body Fluid Total Nucleated 45842 /mcL
[2023-10-03 15:31] LABS: Body Fluid Appearance Cloudy; Body Fluid Color Amber; Body Fluid Source Synovial Fluid
[2023-10-03 15:33] LABS: Body Fluid Mono 8 %; Body Fluid Total Cells Counted 200
[2023-10-04 06:24] LABS: ABS Basophils 0.1 10^3/uL (0.0-0.1); ABS Eosinophils 0.2 10^3/uL (0.0-0.5); ABS Lymphocytes 1.9 10^3/uL (1.0-4.8); ABS Monocytes 1.4 10^3/uL (0.0-1.1); ABS Neutrophils 7.5 10^3/uL (1.5-7.6); Eosinophil % 2.1 %; Hematocrit 34.4 % (38-53); Hemoglobin 11.8 g/dL (13.2-16.3); Lymphocyte % 16.8 %; Mean Corpuscular Hemoglobin 32.7 pg (27-33); Mean Corpuscular Hgb Conc 34.2 g/dL (31-36); Mean Corpuscular Volume 95.5 fL (80-97); Mean Platelet Volume 6.6 fL (7.5-11.2); Platelet Count 374 10^3/uL (150-450); White Blood Count 11.1 10^3/uL (3.6-10.2)
[2023-10-04 06:43] LABS: Calcium 8.8 mg/dL (8.6-10.3); Creatinine, Serum 1.51 mg/dL (0.67-1.17); Potassium 3.5 mmol/L (3.5-5.0)
[2023-10-04] MEDS ORDERED: Succinylcholine 200 mg VIAL 20 mg/ml 10 ml VIAL (200 mg) ONE (07:18)
[2023-10-04] MEDS ORDERED: Propofol 10 MG/ML 20 ML BTL ONE (07:18)
[2023-10-04] MEDS ORDERED: Lidocaine 2% PF 5 ML VIAL ONE (07:18)
[2023-10-04] MEDS ORDERED: Desflurane 240 ML INH ONE (07:18)
[2023-10-04] MEDS ORDERED: Rocuronium 50 mg VIAL 10 mg/ml 5 ml VIAL (50 mg) ONE (07:20)
[2023-10-04] MEDS ORDERED: fentaNYL 100 mcg/2 ml 50 MCG/ML VIAL ONE (07:20)
[2023-10-04] MEDS ORDERED: Lactated Ringers 1000 ml BAG 1,000 ML IV SCH ×2 (08:00→11:00)
[2023-10-04] MEDS ORDERED: Ondansetron 4 mg VIAL 2 MG/ML 2 ml VIAL ONE (08:59)
[2023-10-04] MEDS ORDERED: Dexamethasone IV 4 MG/ML VIAL 1 ml VIAL ONE (08:59)
[2023-10-04] MEDS ORDERED: fentaNYL 100 mcg/2 ml 50 MCG/ML VIAL IV PRN (09:12)
[2023-10-04] MEDS ORDERED: Naloxone 0.4 mg VIAL 0.4 mg/ml 1 ml VIAL IV PRN (09:12)
[2023-10-04] MEDS ORDERED: Ondansetron 4 mg VIAL 2 MG/ML 2 ml VIAL IV PRN ×2 (09:12→10:07)
[2023-10-04] MEDS ORDERED: Bupivacaine 0.25% SDV 30 ML ONE (09:47)
[2023-10-04] MEDS ORDERED: Bupivacaine 0.5% SDV PF 30ML VIAL ONE (09:47)
[2023-10-04] MEDS ORDERED: Ondansetron ODT 4 mg TAB 4 MG TAB PO PRN (10:07)
[2023-10-04] MEDS ORDERED: Magnesium Hydroxide LIQ 30 ML UDC PO PRN (10:07)
[2023-10-04] MEDS ORDERED: Lactulose 30 ml UDC PO PRN (10:07)
[2023-10-04] MEDS: cefTRIAXone 1 gm/50 mL D5W 1 GM/50 ML BAG IV SCH (11:26)
[2023-10-04] MEDS: Insulin GLARGINE 100 un/ml 10 ml VIAL SUBCUT SCH (12:21)
[2023-10-04] MEDS ORDERED: Magnesium Hydroxide LIQ 30 ML UDC PO SCH (21:00)
[2023-10-05 06:28] LABS: ABS Lymphocytes 1.6 10^3/uL (1.0-4.8); ABS Neutrophils 8.5 10^3/uL (1.5-7.6); ABS Nucleated RBC 0.01 10^3/ul; Eosinophil % 0.3 %; Hematocrit 32.5 % (38-53); Hemoglobin 11.2 g/dL (13.2-16.3); Lymphocyte % 14.6 %; Mean Corpuscular Hemoglobin 32.5 pg (27-33); Mean Corpuscular Hgb Conc 34.7 g/dL (31-36); Mean Corpuscular Volume 93.8 fL (80-97); Mean Platelet Volume 6.9 fL (7.5-11.2); Nucleated Red Blood Cells % 0.1 %/100WBC (0.0-0.8); Platelet Count 381 10^3/uL (150-450); Red Blood Count 3.46 10^6/uL (4.06-5.63); Red Cell Distribution Width 13.2 % (12-17); White Blood Count 11.3 10^3/uL (3.6-10.2)
[2023-10-05 06:46] LABS: C Reactive Protein 135.83 mg/L (<8.01); Calcium 8.9 mg/dL (8.6-10.3); Creatinine, Serum 1.46 mg/dL (0.67-1.17); Potassium 3.9 mmol/L (3.5-5.0); eGFR CKD-EPI 46.8 (>60)
[2023-10-05] MEDS: Vitamin THERAPEUTIC TAB PO SCH (07:59)
[2023-10-05] MEDS: Insulin GLARGINE 100 un/ml 10 ml VIAL SUBCUT SCH (08:00)
[2023-10-05] MEDS: cefTRIAXone 1 gm/50 mL D5W 1 GM/50 ML BAG IV SCH (11:30)
[2023-10-06 07:58] LABS: Platelet Count 435 10^3/uL (150-450)
[2023-10-06 08:23] LABS: Hematocrit 32.6 % (38-53); Hemoglobin 11.2 g/dL (13.2-16.3); Mean Platelet Volume 6.8 fL (7.5-11.2)
[2023-10-06] MEDS: Vitamin THERAPEUTIC TAB PO SCH (08:23)
[2023-10-06] MEDS: Insulin GLARGINE 100 un/ml 10 ml VIAL SUBCUT SCH (08:24)
[2023-10-06 09:58] LABS: ABS Basophils 0.1 10^3/uL (0.0-0.1); ABS Eosinophils 0.4 10^3/uL (0.0-0.5); ABS Lymphocytes 1.8 10^3/uL (1.0-4.8); ABS Monocytes 0.9 10^3/uL (0.0-1.1); ABS Neutrophils 4.7 10^3/uL (1.5-7.6); Eosinophil % 4.6 %; Lymphocyte % 22.7 %; Mean Corpuscular Hemoglobin 33.1 pg (27-33); Mean Corpuscular Hgb Conc 34.9 g/dL (31-36); Mean Corpuscular Volume 94.7 fL (80-97); Red Blood Count 3.42 10^6/uL (4.06-5.63); Red Cell Distribution Width 12.9 % (12-17); White Blood Count 7.8 10^3/uL (3.6-10.2)
[2023-10-06] MEDS: cefTRIAXone 1 gm/50 mL D5W 1 GM/50 ML BAG IV SCH (10:49)
[2023-10-06 13:44] LABS: Lactate Dehydrogenase, BF 2288 U/L
[2023-10-06 21:02] LABS: Folate 10.9 ng/mL (5.90-24.80)
[2023-10-07] MEDS: Insulin GLARGINE 100 un/ml 10 ml VIAL SUBCUT SCH (08:00)
[2023-10-07] MEDS: Vitamin THERAPEUTIC TAB PO SCH (08:00)
[2023-10-07 08:55] LABS: Glucose, BF 97 mg/dL
[2023-10-07 08:57] LABS: Fluid Type, Protein, Total SYNOVIAL FLUID; Total Protein, BF 3.6 g/dL
[2023-10-07] MEDS: cefTRIAXone 1 gm/50 mL D5W 1 GM/50 ML BAG IV SCH (10:00)
[2023-10-07 14:21] VITALS: BP 103/63
[2023-10-07 23:37] LABS: Albumin 2.7 g/dL (3.4-4.7); Flag, M-protein Isotype Negative (Negative); Total Protein 5.9 g/dL (6.3 - 7.9)
[2023-10-08 19:07] LABS: Urine Kappa Total Light Chain 7.3 mg/dL (<0.9000); Urine Kappa/Lambda Light Chain 3.51; Urine Lambda Total Light Chain 2.08 mg/dL (<0.7000)
== END 2023-10-07 12:32 | disposition home or self-care (01) | DRG 507 ==
LOC: ED 08:13 → EDHOLD 08:13 → MEDTELE 13:58 → SUATTDRO 10-04 10:03
PROVIDERS: ADMIT Hospitalist; ATTEND Hospitalist